=== PATIENT | female | born 1975 | race Caucasian/White ===

== ENCOUNTER 2022-09-27 07:38 | Emergency (ER) | payer MEDICAID, SELFPAY ==
[2022-09-27] VITALS (13 sets, daily range): BP systolic 102–156; BP diastolic 64–88; PULSE 63–83; RESP 12–22; O2SAT 97–100; BMI 28.8
--- NOTE | 2022-09-27 07:51 | ECG_ITS ---
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
--- NOTE | 2022-09-27 07:52 | XR_ITS ---
[address] [address] Patient Name: KATI LANGLEY MRN: [id number] date: 1975 Sex: F Assigned Patient Location: ER Current Patient Location: ER Accession/Order Number: [id number] Exam Date: 09/27/2022 08:05 Report Date: 09/27/2022 08:25 At the request of: CHANDLER CAPUTO Procedure: XR chest 2V XR chest 2V CLINICAL HISTORY: Syncope, possible vasovagal. COMPARISON: None Available. TECHNIQUE: Single AP portable upright view of the chest. FINDINGS: The lungs are clear. No pleural effusion or pneumothorax. Cardiomediastinal silhouette size is normal. Thoracic spondylosis without acute bony process. IMPRESSION: No acute cardiopulmonary process. Electronically authenticated by: LOUISE SINGLETARY Date: 09/27/2022 08:25
--- NOTE | 2022-09-27 07:53 | ED.SYNCOPE1 ---
HPI - Syncope General Chief Complaint: Syncope Stated Complaint: PASSING OUT Time Seen by Provider: 09/27/22 07:46 Source: patient Mode of arrival: walk-in History of Present Illness HPI narrative: patient presents with a syncopal episode today. Her and her slept on the couch last night. He felt fine all evening long. She had to void this morning and when she got up quickly to use the restroom and sat on the commode she started feeling woozy and lightheaded. She remembers hearing a thump but was on the floor for unspecified amount of time. She did not injure herself and has no pain or discomfort at this time. She woke up and felt little lightheaded at that time. She took her blood pressure shortly thereafter with a home monitor and was on the low side. She is not treating herself for hypertension and has no previous episodes syncope before. 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 She did not have any palpitations. She denies any use of drugs. She did have several alcoholic beverages last night. She denied any shortness of breath. She's not had swelling of her legs. She is not on any estrogen products. No history of clotting diseases or deep vein thrombosis/PE. Her brother had a nonspecific clotting disorder. MD complaint: Reports loss of consciousness and felt faint; Denies seizure Description of event: Denies post-event confusion or incontinence Related Data Allergies Allergy/AdvReac Type Severity Reaction Status Date / Time ciprofloxacin [From Cipro] Allergy Severe Verified 09/27/22 07:49 morphine Allergy Severe Verified 09/27/22 07:49 Penicillins Allergy Severe Verified 09/27/22 07:49 meperidine [From Demerol] AdvReac Severe Verified 09/27/22 07:49 Exam Narrative Exam Narrative: awake alert good health. She wanted to know if I thought that she may have had a vasovagal reaction. 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 She feels fine at this time with no symptoms at all. He does have a local family doctor but she has not seen him recently. Constitutional Vital Signs - 24 hr 09/27/22 07:42 09/27/22 07:46 09/27/22 07:51 Pulse Rate 75 Pulse Rate [Monitor] 79 Respiratory Rate 18 19 Blood Pressure 102/64 Blood Pressure [Left Arm] 156/88 H Pulse Oximetry 100 Oxygen Delivery Method Room Air 09/27/22 09:04 09/27/22 09:54 09/27/22 07:51 Pulse Rate 65 Pulse Rate [Monitor] Respiratory Rate 16 Blood Pressure 104/68 104/80 H Blood Pressure [Left Arm] Pulse Oximetry 99 Oxygen Delivery Method 09/27/22 07:46 09/27/22 08:16 09/27/22 08:20 Pulse Rate 71 83 68 Pulse Rate [Monitor] Respiratory Rate 22 19 17 Blood Pressure 156/88 H Blood Pressure [Left Arm] Pulse Oximetry 100 99 99 Oxygen Delivery Method 09/27/22 08:25 09/27/22 08:25 Pulse Rate 69 63 Pulse Rate [Monitor] Respiratory Rate 15 16 Blood Pressure Blood Pressure [Left Arm] Pulse Oximetry 99 Oxygen Delivery Method Common normals: no apparent distress, average body habitus and oriented x3 Exam limitations: no altered mental status Neck & C-Spine Common normals: full ROM, supple and no meningeal signs Carotids: normal carotid upstroke Respiratory Common normals: normal respiratory effort and clear to auscultation bilaterally Cardio Common normals: no JVD, regular rate, regular rhythm, no clicks and no murmurs Extremity Common normals: no calf tenderness and no pedal edema Course Vital Signs Vital signs: Vital Signs Pulse Rate 79 09/27/22 07:42 Respiratory Rate 18 09/27/22 07:42 Blood Pressure 156/88 H 09/27/22 07:42 Pulse Oximetry 100 09/27/22 07:42 Oxygen Delivery Method Room Air 09/27/22 07:42 Pulse Rate 83 09/27/22 13:30 Respiratory Rate 16 09/27/22 13:30 Blood Pressure 122/78 H 09/27/22 12:45 Pulse Oximetry 99 09/27/22 13:30 Oxygen Delivery Method Room Air 09/27/22 07:42 MDM - Syncope MDM Narrative Medical decision making narrative: this patient presents with low cardiovascular risk profile with no current hypertension diabetes or cholesterol problems. Her examination was benign. She definitely had a syncopal episode that is new event for her. Her EKGs do not show any ischemia injury or infarct. Her initial troponin came back substantially elevated at nearly 400. She had already taken 325 mg of aspirin at home. A repeat troponin was done two hours after the 1st and is even more elevated at nearly 1400. 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 She was stable and totally asymptomatic throughout this time. Here in the Emergency Room. Lab Data Labs: Lab Results 09/27/22 09/27/22 Range/Units 07:48 10:14 WBC 8.4 (4.0-11.0) 10^3/uL RBC 4.92 (4.20-5.40) 10^6/uL Hgb 14.1 (12.0-16.0) g/dL Hct 43.2 (36.0-48.0) % MCV 87.8 (81.0-99.0) fL MCH 28.7 (26.7-34.0) pg MCHC 32.6 (29.9-35.2) g/dL RDW 13.2 (11.0-15.0) % Plt Count 347 (150-450) 10^3/uL MPV 9.3 L (9.5-13.5) fL Neut % (Auto) 59.5 (43.0-75.0) % Lymph % (Auto) 27.1 (20.5-60.0) % [place] % (Auto) 6.4 (1.7-12.0) % Eos % (Auto) 6.0 (0.9-7.0) % Baso % (Auto) 0.6 (0.2-2.0) % Neut # (Auto) 5.0 (1.4-6.5) 10^3/uL Lymph # (Auto) 2.3 (1.2-3.8) 10^3/uL [place] # (Auto) 0.5 (0.3-0.8) 10^3/uL Eos # (Auto) 0.5 (0.0-0.7) 10^3/uL Baso # (Auto) 0.1 (0.0-0.1) 10^3/uL Abs Immat Gran (auto) 0.03 (0.00-0.03) 10^3/uL Imm/Tot Granulo (auto) 0.4 (0.0-0.5) % D-Dimer 0.38 (<=0.59) mg/L FEU Sodium 139 (136-145) mmol/L Potassium 3.8 (3.5-5.1) mmol/L Chloride 103 (98-107) mmol/L Carbon Dioxide 28.7 (21.0-32.0) mmol/L Anion Gap 11.1 BUN 8.0 (7.0-18.0) mg/dL Creatinine 0.75 (0.55-1.02) mg/dL Est GFR ( Amer) >60 (>=60) Est GFR (Non-Af Amer) >60 (>=60) BUN/Creatinine Ratio 10.7 Glucose 107 H (74-106) mg/dL Calcium 7.9 L (8.5-10.1) mg/dL Total Bilirubin 0.3 (0.2-1.0) mg/dL AST 15 (15-37) U/L ALT 17 (14-59) U/L Alkaline Phosphatase 61 (46-116) U/L Troponin I High Sens 424.9 H* 1444.0 H* (4.0-51.3) pg/mL Total Protein 7.0 (6.4-8.2) g/dL Albumin 3.3 L (3.4-5.0) g/dL Globulin 3.7 g/dL Albumin/Globulin Ratio 0.9 ECG Data Attestation: I personally reviewed and interpreted this ECG as follows: (EKG shows sinus rhythm rate sixty, no ectopy, no ST segment elevation. QTC four thirty-two. A 2nd EKG was done and showed essentially identical findings.) Discharge Plan Discharge Chief Complaint: Syncope Clinical Impression: Vasovagal syncope, Non-ST elevated myocardial infarction (non-STEMI) Patient Disposition: [facility] Time of Disposition Decision: 11:03 Discharge Location: [facility] Condition: Good Mode of Transportation: EMS Discharge Date/Time: 09/27/22 13:32
[2022-09-27] MEDS: 0.9 % SODIUM CHLORIDE 1,000 ML 999 ML IV (08:03)
[2022-09-27 08:04] LABS: Basophils Absolute Auto 0.1 10^3/uL (0.0-0.1); Basophils Percent Auto 0.6 % (0.2-2.0); Eosinophils Absolute Auto 0.5 10^3/uL (0.0-0.7); Hematocrit 43.2 % (36.0-48.0); Hemoglobin 14.1 g/dL (12.0-16.0); Immature Granulocytes Abs Auto 0.03 10^3/uL (0.00-0.03); Immature Granulocytes Pct Auto 0.4 % (0.0-0.5); Lymphocytes Absolute Auto 2.3 10^3/uL (1.2-3.8); Lymphocytes Percent Auto 27.1 % (20.5-60.0); Mean Corpuscular HGB Conc 32.6 g/dL (29.9-35.2); Mean Corpuscular Hemoglobin 28.7 pg (26.7-34.0); Mean Corpuscular Volume 87.8 fL (81.0-99.0); Mean Platelet Volume 9.3 fL (9.5-13.5); Monocytes Absolute Auto 0.5 10^3/uL (0.3-0.8); Monocytes Percent Auto 6.4 % (1.7-12.0); Neutrophils Percent Auto 59.5 % (43.0-75.0); Platelet Count 347 10^3/uL (150-450); Red Blood Count 4.92 10^6/uL (4.20-5.40); Red Cell Distribution Width 13.2 % (11.0-15.0); White Blood Count 8.4 10^3/uL (4.0-11.0)
[2022-09-27 08:16] LABS: Alanine Aminotransferase 17 U/L (14-59); Albumin Globulin Ratio 0.9; Albumin Level 3.3 g/dL (3.4-5.0); Alkaline Phosphatase 61 U/L (46-116); Anion Gap 11.1; Aspartate Amino Transferase 15 U/L (15-37); BUN Creatinine Ratio 10.7; Bilirubin Total 0.3 mg/dL (0.2-1.0); Calcium 7.9 mg/dL (8.5-10.1); Carbon Dioxide 28.7 mmol/L (21.0-32.0); Chloride 103 mmol/L (98-107); Estimated GFR (African America >60 (>=60); Estimated GFR (Non-African Ame >60 (>=60); Globulin 3.7 g/dL; Glucose 107 mg/dL (74-106); Potassium 3.8 mmol/L (3.5-5.1); Sodium 139 mmol/L (136-145)
[2022-09-27 08:17] LABS: D Dimer 0.38 mg/L FEU (<=0.59)
[2022-09-27 08:19] LABS: Troponin I High Sensitivity 424.9 pg/mL (4.0-51.3)
--- NOTE | 2022-09-27 08:30 | ECG_ITS ---
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
== END 2022-09-27 13:32 | disposition short-term general hospital (02) ==
PROVIDERS: Emergency Provider Emergency Medicine Emergency Medical Services; PCP Family Medicine
DX: I21.4 Non-ST elevation (NSTEMI) myocardial infarction (principal); R55 Syncope and collapse
CPT/HCPCS: 36415; 71046; 80053; 84484; 85025; 85378; 93005; 96360; 96361; 99285

== ENCOUNTER 2022-10-08 12:53 | Outpatient (OUT) | payer MEDICAID, SELFPAY ==
[2022-10-09 13:09] LABS: ANA Direct Negative (Negative)
[2022-10-21 12:12] LABS: APTT 26.7 sec (.); Prothrombin Time 10.4 sec (.); Thrombin Time 15.8 sec (.)
== END 2022-10-08 12:54 | disposition home or self-care (01) ==
LOC: LAB 12:55
PROVIDERS: PCP Family Medicine; Visit Provider Internal Medicine Cardiovascular Disease
DX: I21.4 Non-ST elevation (NSTEMI) myocardial infarction (principal); I25.10 Atherosclerotic heart disease of native coronary artery without angina pectoris
CPT/HCPCS: 36415; 81241; 85597; 85598; 85610; 85613; 85670; 85730; 85732; 86038; 86146; 86147

== ENCOUNTER 2022-11-02 14:20 | Outpatient (OUT) | payer OTHER, SELFPAY ==
[2022-11-02 14:35] LABS: Basophils Absolute Auto 0.1 10^3/uL (0.0-0.1); Basophils Percent Auto 0.6 % (0.2-2.0); Eosinophils Absolute Auto 0.2 10^3/uL (0.0-0.7); Eosinophils Percent Auto 2.4 % (0.9-7.0); Hematocrit 25.5 % (36.0-48.0); Hemoglobin 8.4 g/dL (12.0-16.0); Immature Granulocytes Abs Auto 0.03 10^3/uL (0.00-0.03); Immature Granulocytes Pct Auto 0.3 % (0.0-0.5); Lymphocytes Absolute Auto 2.3 10^3/uL (1.2-3.8); Lymphocytes Percent Auto 22.5 % (20.5-60.0); Mean Corpuscular HGB Conc 32.9 g/dL (29.9-35.2); Mean Corpuscular Hemoglobin 28.4 pg (26.7-34.0); Mean Corpuscular Volume 86.1 fL (81.0-99.0); Mean Platelet Volume 9.2 fL (9.5-13.5); Monocytes Absolute Auto 0.6 10^3/uL (0.3-0.8); Monocytes Percent Auto 5.5 % (1.7-12.0); Neutrophils Percent Auto 68.7 % (43.0-75.0); Platelet Count 370 10^3/uL (150-450); Red Blood Count 2.96 10^6/uL (4.20-5.40); Red Cell Distribution Width 13.5 % (11.0-15.0); White Blood Count 10.2 10^3/uL (4.0-11.0)
== END 2022-11-02 14:21 | disposition home or self-care (01) ==
LOC: LAB 14:23
PROVIDERS: PCP Family Medicine; Visit Provider Obstetrics & Gynecology
DX: N93.9 Abnormal uterine and vaginal bleeding, unspecified (principal)
CPT/HCPCS: 36415; 85025

== ENCOUNTER 2022-11-30 13:56 | Outpatient (OUT) | payer OTHER, SELFPAY ==
[2022-11-30 14:27] LABS: Basophils Absolute Auto 0.1 10^3/uL (0.0-0.1); Basophils Percent Auto 0.7 % (0.2-2.0); Eosinophils Absolute Auto 0.2 10^3/uL (0.0-0.7); Hematocrit 32.6 % (36.0-48.0); Hemoglobin 10.1 g/dL (12.0-16.0); Immature Granulocytes Abs Auto 0.02 10^3/uL (0.00-0.03); Immature Granulocytes Pct Auto 0.3 % (0.0-0.5); Lymphocytes Absolute Auto 2.1 10^3/uL (1.2-3.8); Lymphocytes Percent Auto 31.8 % (20.5-60.0); Mean Corpuscular Hemoglobin 26.6 pg (26.7-34.0); Mean Platelet Volume 8.7 fL (9.5-13.5); Monocytes Absolute Auto 0.4 10^3/uL (0.3-0.8); Neutrophils Absolute Auto 3.9 10^3/uL (1.4-6.5); Neutrophils Percent Auto 58.2 % (43.0-75.0); Platelet Count 429 10^3/uL (150-450); Red Blood Count 3.79 10^6/uL (4.20-5.40); Red Cell Distribution Width 13.4 % (11.0-15.0); White Blood Count 6.7 10^3/uL (4.0-11.0)
[2022-11-30 14:39] LABS: Lactate Dehydrogenase 195 U/L (81-234)
[2022-12-01 04:10] LABS: AFP, Serum, Tumor Marker 1.9 ng/mL (0.0-6.4); HCG Tumor Marker 1 mIU/mL (.)
[2022-12-01 05:07] LABS: CEA 1.6 ng/mL (0.0-4.7)
== END 2022-11-30 13:57 | disposition home or self-care (01) ==
LOC: LAB 13:56
PROVIDERS: PCP Family Medicine; Visit Provider Obstetrics & Gynecology
DX: D25.9 Leiomyoma of uterus, unspecified (principal); N93.9 Abnormal uterine and vaginal bleeding, unspecified
CPT/HCPCS: 36415; 82105; 82378; 83615; 84702; 85025; 86304

== ENCOUNTER 2023-03-18 20:11 | Emergency (ER) | payer OTHER, SELFPAY ==
[2023-03-18] VITALS (12 sets, daily range): BP systolic 150–162; BP diastolic 98–100; PULSE 85–103; RESP 7–28; TEMP 36.9; O2SAT 97–100; BMI 31.1
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
--- NOTE | 2023-03-18 20:39 | ECG_ITS ---
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
--- NOTE | 2023-03-18 21:12 | CT_ITS ---
The [address] [address] Patient Name: KATI CORTEZ MRN: [id number] date: 1975 Sex: F Assigned Patient Location: ER Current Patient Location: ER Accession/Order Number: [id number] Exam Date: 03/18/2023 21:45 Report Date: 03/18/2023 22:34 At the request of: JOY MAYNARD Procedure: CT angio abdomen pelvis EXAM: CT angiogram of the chest, abdomen and pelvis using 100 mL of IV iodinated contrast. 3D images were generated on an independent workstation for better evaluation of the vasculature. Dose reduction technique used: Automated exposure control and/or adjustment of the mA and/or kV according to patient size and/or use of iterative reconstruction technique. REASON FOR EXAM: chest pain COMPARISON: None FINDINGS: CHEST: No aortic dissection, aneurysm, penetrating atheromatous ulcer or intramural hematoma. No pulmonary embolism. No pneumothorax. No pleural effusion. No acute airspace opacities. No acute fractures. No concerning pulmonary nodules. No lymphadenopathy in the chest. Coronary atherosclerotic calcifications. ABDOMEN/PELVIS: No aortic dissection, aneurysm, penetrating atheromatous ulcer or intramural hematoma. Celiac, superior mesenteric, bilateral renal, inferior mesenteric, bilateral common iliac, bilateral external iliac, bilateral common femoral arteries are patent without aneurysm, dissection or significant stenosis. Grade 2-3 anterolisthesis of L5 on S1. Bilateral L5 spondylolysis. Colonic diverticulosis. Normal appendix. No free intraperitoneal air. No free fluid in the abdomen or pelvis. No dilated or thickened loops of small bowel or colon. No hydronephrosis or obstructing renal or ureteral calculi. Liver, pancreas, spleen, bilateral kidneys, and bilateral adrenal glands are otherwise unremarkable. Remainder unremarkable. CT/CT angio abdomen pelvis IMPRESSION: 1. No acute aortic abnormalities. 2. No acute abnormalities in the chest, abdomen or pelvis. 3. Coronary atherosclerosis. 4. Grade 2-3 anterolisthesis of L5 on S1. Electronically authenticated by: DEBORAH GIBBS Date: 03/18/2023 22:34
--- NOTE | 2023-03-18 21:12 | CT_ITS ---
The [address] [address] Patient Name: KATI CORTEZ MRN: [id number] date: 1975 Sex: F Assigned Patient Location: ER Current Patient Location: ER Accession/Order Number: [id number] Exam Date: 03/18/2023 21:45 Report Date: 03/18/2023 22:34 At the request of: JOY MAYNARD Procedure: CT angio chest EXAM: CT angiogram of the chest, abdomen and pelvis using 100 mL of IV iodinated contrast. 3D images were generated on an independent workstation for better evaluation of the vasculature. Dose reduction technique used: Automated exposure control and/or adjustment of the mA and/or kV according to patient size and/or use of iterative reconstruction technique. REASON FOR EXAM: chest pain COMPARISON: None FINDINGS: CHEST: No aortic dissection, aneurysm, penetrating atheromatous ulcer or intramural hematoma. No pulmonary embolism. No pneumothorax. No pleural effusion. No acute airspace opacities. No acute fractures. No concerning pulmonary nodules. No lymphadenopathy in the chest. Coronary atherosclerotic calcifications. ABDOMEN/PELVIS: No aortic dissection, aneurysm, penetrating atheromatous ulcer or intramural hematoma. Celiac, superior mesenteric, bilateral renal, inferior mesenteric, bilateral common iliac, bilateral external iliac, bilateral common femoral arteries are patent without aneurysm, dissection or significant stenosis. Grade 2-3 anterolisthesis of L5 on S1. Bilateral L5 spondylolysis. Colonic diverticulosis. Normal appendix. No free intraperitoneal air. No free fluid in the abdomen or pelvis. No dilated or thickened loops of small bowel or colon. No hydronephrosis or obstructing renal or ureteral calculi. Liver, pancreas, spleen, bilateral kidneys, and bilateral adrenal glands are otherwise unremarkable. Remainder unremarkable. CT/CT angio chest IMPRESSION: 1. No acute aortic abnormalities. 2. No acute abnormalities in the chest, abdomen or pelvis. 3. Coronary atherosclerosis. 4. Grade 2-3 anterolisthesis of L5 on S1. Electronically authenticated by: DEBORAH GIBBS Date: 03/18/2023 22:34
[2023-03-18 21:21] LABS: Basophils Absolute Auto 0.1 10^3/uL (0.0-0.1); Basophils Percent Auto 0.6 % (0.2-2.0); Eosinophils Absolute Auto 0.3 10^3/uL (0.0-0.7); Eosinophils Percent Auto 3.5 % (0.9-7.0); Hematocrit 34.9 % (36.0-48.0); Immature Granulocytes Abs Auto 0.03 10^3/uL (0.00-0.03); Immature Granulocytes Pct Auto 0.3 % (0.0-0.5); Lymphocytes Absolute Auto 2.6 10^3/uL (1.2-3.8); Lymphocytes Percent Auto 29.3 % (20.5-60.0); Mean Corpuscular HGB Conc 28.7 g/dL (29.9-35.2); Mean Corpuscular Hemoglobin 21.6 pg (26.7-34.0); Mean Corpuscular Volume 75.4 fL (81.0-99.0); Mean Platelet Volume 9.1 fL (9.5-13.5); Monocytes Absolute Auto 0.5 10^3/uL (0.3-0.8); Neutrophils Absolute Auto 5.4 10^3/uL (1.4-6.5); Neutrophils Percent Auto 60.3 % (43.0-75.0); Platelet Count 443 10^3/uL (150-450); Red Blood Count 4.63 10^6/uL (4.20-5.40); Red Cell Distribution Width 18.6 % (11.0-15.0)
[2023-03-18] MEDS: ONDANSETRON PF 4 MG/2 ML VIAL IV (21:24)
[2023-03-18] MEDS: 0.9 % SODIUM CHLORIDE 1,000 ML 999 ML IV (21:24)
[2023-03-18] MEDS: HYDROMORPHONE HCL 1 MG/ML CARTRIDGE IV (21:27)
[2023-03-18] MEDS: ORPHENADRINE 60 MG/ 2 ML VIAL IV (21:27)
[2023-03-18 21:40] LABS: Prothrombin Time 9.8 sec (9.0-11.6)
[2023-03-18 21:43] LABS: Alanine Aminotransferase 24 U/L (14-59); Albumin Globulin Ratio 1.1; Albumin Level 3.7 g/dL (3.4-5.0); Alkaline Phosphatase 53 U/L (46-116); Anion Gap 13.4; Aspartate Amino Transferase 14 U/L (15-37); BUN Creatinine Ratio 21.4; Bilirubin Total 0.5 mg/dL (0.2-1.0); Calcium 8.4 mg/dL (8.5-10.1); Carbon Dioxide 27.4 mmol/L (21.0-32.0); Chloride 102 mmol/L (98-107); Estimated GFR (African America >60 (>=60); Estimated GFR (Non-African Ame >60 (>=60); Globulin 3.5 g/dL; Glucose 104 mg/dL (74-106); Potassium 3.8 mmol/L (3.5-5.1); Sodium 139 mmol/L (136-145); Total Protein 7.2 g/dL (6.4-8.2)
[2023-03-18 21:44] LABS: INR <0.93
[2023-03-18 21:46] LABS: Troponin I High Sensitivity 15.6 pg/mL (4.0-51.3)
[2023-03-18 22:46] LABS: Amphetamine Screen Urine NEGATIVE (NEGATIVE); Barbiturates Screen Urine NEGATIVE (NEGATIVE); Benzodiazepines Screen Urine NEGATIVE (NEGATIVE); Buprenorphine Screen Urine NEGATIVE (NEGATIVE); Cannabinoid Screen Urine NEGATIVE (NEGATIVE); Cocaine Screen Urine NEGATIVE (NEGATIVE); Methadone Screen Urine NEGATIVE (NEGATIVE); Methamphetamines Screen Urine NEGATIVE (NEGATIVE); Opiate Screen Urine POSITIVE (NEGATIVE); Oxycodone Screen Urine NEGATIVE (NEGATIVE); Phencyclidine Screen Urine NEGATIVE (NEGATIVE); Tricyclic Antidepressant Urine NEGATIVE (NEGATIVE)
[2023-03-19] MEDS: DIAZEPAM 2 MG TABLET PO (00:07)
== END 2023-03-19 00:29 | disposition home or self-care (01) ==
PROVIDERS: Physician Assistant; Emergency Provider Emergency Medicine; PCP Family Medicine
DX: R10.9 Unspecified abdominal pain (principal); M54.9 Dorsalgia, unspecified; S16.1XXA Strain of muscle, fascia and tendon at neck level, initial encounter; Y04.8XXA Assault by other bodily force, initial encounter; Z95.5 Presence of coronary angioplasty implant and graft; Z79.899 Other long term (current) drug therapy
CPT/HCPCS: 36415; 71275; 72125; 74174; 80053; 80307; 84484; 85025; 85610; 93005; 96374; 96375; 99285; J1170; Q9967

== ENCOUNTER 2023-03-20 20:21 | Emergency (ER) | payer OTHER, SELFPAY ==
[2023-03-20 20:28] VITALS: BP 129/80; PULSE 92; RESP 18; TEMP 36.8; O2SAT 99; BMI 33.7
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
--- NOTE | 2023-03-20 23:24 | XR_ITS ---
The [address] [address] Patient Name: KATI CORTEZ MRN: [id number] date: 1975 Sex: F Assigned Patient Location: ER Current Patient Location: ER Accession/Order Number: [id number] Exam Date: 03/20/2023 23:38 Report Date: 03/21/2023 00:00 At the request of: PK MCLEAN Procedure: XR chest 2V EXAM: XR chest 2V HISTORY: hemoptysis COMPARISON: Chest x-ray 09/27/2022 TECHNIQUE: PA and lateral chest FINDINGS: No pneumothorax, pleural effusion or consolidation. Normal heart size. No acute osseous abnormality. XR/XR chest 2V IMPRESSION: No acute cardiopulmonary process. Electronically authenticated by: ALFREDO ALRFED Date: 03/21/2023 00:00
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
[2023-03-20 23:57] LABS: Basophils Percent Auto 0.4 % (0.2-2.0); Eosinophils Absolute Auto 0.4 10^3/uL (0.0-0.7); Eosinophils Percent Auto 3.4 % (0.9-7.0); Hematocrit 33.6 % (36.0-48.0); Hemoglobin 9.7 g/dL (12.0-16.0); Immature Granulocytes Abs Auto 0.04 10^3/uL (0.00-0.03); Immature Granulocytes Pct Auto 0.4 % (0.0-0.5); Lymphocytes Absolute Auto 2.3 10^3/uL (1.2-3.8); Lymphocytes Percent Auto 22.7 % (20.5-60.0); Mean Corpuscular HGB Conc 28.9 g/dL (29.9-35.2); Mean Corpuscular Hemoglobin 22.4 pg (26.7-34.0); Mean Corpuscular Volume 77.4 fL (81.0-99.0); Mean Platelet Volume 9.2 fL (9.5-13.5); Monocytes Absolute Auto 0.7 10^3/uL (0.3-0.8); Monocytes Percent Auto 6.3 % (1.7-12.0); Neutrophils Absolute Auto 6.8 10^3/uL (1.4-6.5); Neutrophils Percent Auto 66.8 % (43.0-75.0); Platelet Count 396 10^3/uL (150-450); Red Blood Count 4.34 10^6/uL (4.20-5.40); Red Cell Distribution Width 18.6 % (11.0-15.0); White Blood Count 10.2 10^3/uL (4.0-11.0)
[2023-03-21 00:17] LABS: Alanine Aminotransferase 27 U/L (14-59); Albumin Level 3.3 g/dL (3.4-5.0); Alkaline Phosphatase 47 U/L (46-116); Anion Gap 10.2; Aspartate Amino Transferase 14 U/L (15-37); BUN Creatinine Ratio 18.7; Bilirubin Total 0.2 mg/dL (0.2-1.0); Calcium 8.5 mg/dL (8.5-10.1); Carbon Dioxide 28.8 mmol/L (21.0-32.0); Chloride 104 mmol/L (98-107); Estimated GFR (African America >60 (>=60); Estimated GFR (Non-African Ame >60 (>=60); Globulin 3.4 g/dL; Glucose 94 mg/dL (74-106); Sodium 139 mmol/L (136-145); Total Protein 6.7 g/dL (6.4-8.2); Troponin I High Sensitivity 12.9 pg/mL (4.0-51.3)
[2023-03-21] MEDS: 0.9 % SODIUM CHLORIDE 1,000 ML 999 ML IV (00:21)
[2023-03-21] MEDS: CYCLOBENZAPRINE HCL 10 MG TABLET 20 MG PO (01:14)
== END 2023-03-21 01:24 | disposition home or self-care (01) ==
PROVIDERS: Emergency Provider Internal Medicine; PCP Family Medicine
DX: M79.18 Myalgia, other site (principal); I25.2 Old myocardial infarction; Z79.02 Long term (current) use of antithrombotics/antiplatelets; F17.210 Nicotine dependence, cigarettes, uncomplicated
CPT/HCPCS: 36415; 71046; 80053; 83605; 84484; 85025; 99285

== ENCOUNTER 2023-03-26 15:10 | Outpatient (OUT) | payer OTHER, SELFPAY ==
[2023-03-26 15:52] LABS: Basophils Absolute Auto 0.1 10^3/uL (0.0-0.1); Basophils Percent Auto 0.9 % (0.2-2.0); Eosinophils Absolute Auto 0.3 10^3/uL (0.0-0.7); Eosinophils Percent Auto 4.1 % (0.9-7.0); Hematocrit 37.9 % (36.0-48.0); Immature Granulocytes Abs Auto 0.02 10^3/uL (0.00-0.03); Immature Granulocytes Pct Auto 0.2 % (0.0-0.5); Lymphocytes Absolute Auto 2.2 10^3/uL (1.2-3.8); Lymphocytes Percent Auto 26.7 % (20.5-60.0); Mean Platelet Volume 8.8 fL (9.5-13.5); Monocytes Absolute Auto 0.5 10^3/uL (0.3-0.8); Monocytes Percent Auto 6.5 % (1.7-12.0); Neutrophils Percent Auto 61.6 % (43.0-75.0); Platelet Count 492 10^3/uL (150-450); Red Blood Count 4.99 10^6/uL (4.20-5.40); Red Cell Distribution Width 19.2 % (11.0-15.0); White Blood Count 8.1 10^3/uL (4.0-11.0)
[2023-03-26 16:17] LABS: Alanine Aminotransferase 26 U/L (14-59); Alkaline Phosphatase 57 U/L (46-116); Aspartate Amino Transferase 15 U/L (15-37); BUN Creatinine Ratio 17.6; Bilirubin Total 0.4 mg/dL (0.2-1.0); Calcium 9.1 mg/dL (8.5-10.1); Carbon Dioxide 30.4 mmol/L (21.0-32.0); Chloride 98 mmol/L (98-107); Estimated GFR (African America >60 (>=60); Estimated GFR (Non-African Ame >60 (>=60); Globulin 3.9 g/dL; Glucose 96 mg/dL (74-106); Potassium 3.4 mmol/L (3.5-5.1); Sodium 135 mmol/L (136-145); Thyroid Stimulating Hormone 1.008 uIU/mL (0.358-3.740); Total Protein 7.9 g/dL (6.4-8.2)
[2023-03-26 16:19] LABS: Free T4 1.35 ng/dL (0.76-1.46)
[2023-03-29 15:08] LABS: Protein C-Functional 116 % (73-180); Protein S-Functional 83 % (63-140)
== END 2023-03-26 15:11 | disposition home or self-care (01) ==
PROVIDERS: PCP Family Medicine; Visit Provider Family Medicine
DX: I21.4 Non-ST elevation (NSTEMI) myocardial infarction (principal)
CPT/HCPCS: 36415; 80053; 84439; 84443; 85025; 85303; 85306

== ENCOUNTER 2023-04-14 11:23 | Outpatient (OUT) | payer OTHER, SELFPAY ==
--- OUTSIDE RECORDS SUMMARY | 2023-04-14 11:29 | XMS_ITS | CCD ---
Author Name Unknown Address [address] [place] [address] Organization [facility] Care Team Providers Care Construction Engineer Name Role Phone REBECCA ABREU Attending Unavailable REBECCA ABREU Admitting Unavailable Griffin Paredes Unavailable Unavailable Unavailable Johnnie, Dr. Humberto Malloy Attending Unava ilable Johnnie, Jed Diaz Attending Unavailabl e Johnnie, Dr. Humberto Malloy Attending Unava tariq Paredes, Dr. Griffin Garrett Primary Care Unavail able Lena, Dr. Griffin Garrett Primary Care Unavail able Magdy RENEE, Dr. Humberto Mireles Referring Unavailable Dr. Humberto Blair Attending Unava ilGriffin Og Primary Care Unavailable Bullimanne-marie, Ilene E Admitting Unavailable Bullimore, Ilene Galina Attending Unavailable Griffin Paredes Primary Care Unavailable Semaskiene, Ariadna Admitting Unavailable Preston Nair Attending Unavailable Laurita Cardona Consulting Unavailable Davin Blair Consulting Unavailable Della Smith Consulting Unavailable Humberto Curran Consulting Unavail able Brooks Farias Consulting Unavailable Alvaro eVlazquez Consulting Unavailab Josefa Dickson Consulting Unavailable Pooja Zuniga Consulting Unavailable Jose F Magana Consulting Unavailab Marisela Yang Consulting Unavailable Diane Javier Consulting Unavailable Latricia Shine Consulting Unavailable Allergies Allergy Classification Reported Allergen(s) Allergy Type Date of Onset Reaction(s) Facility (3 sources) Ciprofloxacin; Translations: [ciprofloxacin] Drug Allergy [facility] 250 DO Work Phone: (3 sources) Meperidine; Translations: [Demerol TABS] Drug Allergy [facility] 250 DO Work Phone: (3 sources) Penicillins; Translations: [Penicillins] Allergy to drug (finding) -[facility] 250 DO Work Phone: (1 source) Ciprofloxacin Drug Allergy 10-29-2022 [facility] (1 source) Meperidine Drug Allergy 10-29-2022 [facility] (1 source) Morphine Drug Allergy 10-29-2022 [facility] (1 source) Penicillins Drug allergy (disorder) 10-29-2022 [facility] Medications Completed/Discontinued Medications Medication Drug Class(es) Dates Sig (Normalized) Sig (Original) aspirin 81 mg delayed release oral tablet (3 sources) Platelet Aggregation Inhibitor, Nonsteroidal Anti-inflammatory Drug take 1 tablet by mouth once daily Aspirin EC Low Dose 81 MG Oral Tablet Delayed Release TAKE 1 TABLET DAILY DIRECTED. Quantity: 90 Refills: 3 Ordered: 06-Oct-2022 DO Active atorvastatin 80 mg oral tablet (3 sources) HMG-CoA Reductase Inhibitor Start: 10-21-2022 take 1 tablet by mouth at bedtime Atorvastatin Calcium 80 MG Oral Tablet TAKE 1 TABLET AT BEDTIME Quantity: 90 Refills: 3 Ordered: 21-Oct-2022 Humberto Blair DO Start : 21-Oct-2022 Active Name on file SHAMEKA CORTEZ take 1 tablet by mouth at bedtim e Atorvastatin Calcium 80 MG Oral Tablet TAKE 1 TABLET AT BEDTIME. Quantity: 90 Refills: 3 Ordered: 06-Oct-2022 DO Active clopidogrel 75 mg oral tablet (1 source) P2Y12 Platelet Inhibitor Start: 11-03-2022 End: 11-30-2022 Clopidogrel Bisulfate 75 MG Oral Tablet 4 TABLETS X1 DOSE THEN ONE TABLET DAILY THERAFTER. Quantity: 94 Refills: 3 Ordered: 03-Nov-2022 Humberto Blair DO Start : 03-Nov-2022 End : 30-Nov-2022 Complete BRILINTA DISVCONTINUED lisinopril 2.5 mg oral tablet (3 sources) Angiotensin Converting Enzyme Inhibitor Start: 10-21-2022 take 1 tablet by mouth once daily Lisinopril 2.5 MG Oral Tablet Take 1 tablet daily Quantity: 90 Refills: 3 Ordered: 21-Oct-2022 Humberto Blair DO Start : 21-Oct-2022 Active take 1 tablet by mouth once delores y Lisinopril 2.5 MG Oral Tablet TAKE 1 TABLET DAILY. Quantity: 90 Refills: 3 Ordered: 06-Oct-2022 DO Active metoprolol tartrate 25 mg oral tablet (3 sources) beta-Adrenergic Jason Start: 10-21-2022 take 1 tablet by mouth twice daily Metoprolol Tartrate 25 MG Oral Tablet Take 1 tablet twice a day Quantity: 180 Refills: 3 Ordered: 21-Oct-2022 Johnnie MALAGON Humberto Start : 21-Oct-2022 Active take 1 tablet by mouth twice leana ly Metoprolol Tartrate 25 MG Oral Tablet TAKE 1 TABLET TWICE DAILY. Quantity: 180 Refills: 1 Ordered: 06-Oct-2022 DO Active nitroglycerin 0.4 mg sublingual tablet (3 sources) Nitrate Vasodilator Nitroglyceri n 0.4 [address] Tablet Sublingual PL[address] 1 TABLET UNDER THE TONGUE EVERY 5 MINUTES FOR UP TO 3 DOSES NEEDED FOR CHEST PAIN.CALL 911 IF PAIN PERSISTS. Quantity: 1 Refills: 0 Ordered: 06-Oct-2022 DO Active progesterone 200 mg oral capsule (1 source) Progesterone take 1 capsule by mouth once daily Progesterone 200 MG Oral Capsule one daily Quantity: 0 Refills: 0 Ordered: 30-Nov-2022 DO Active ticagrelor 90 mg oral tablet (3 sources) take 1 tablet by mouth twice daily Brilinta 90 MG Oral Tablet TAKE 1 TABLET TWICE DAILY. Quantity: 180 Refills: 3 Ordered: 30-Nov-2022 DO Active Problems Problem Classification Problem Date Documented Date Episodic/Chronic Acute myocardial infarction (3 sources) Myocardial infarction in recovery phase; Translations: [Subendocardial infarction, initial episode of care] Chronic Coronary atherosclerosis and other heart disease (9 sources) Coronary arteriosclerosis; Translations: [Coronary atherosclerosis of unspecified type of vessel, [place] or graft] Chronic Disorders of lipid metabolism (1 source) Hyperlipidemia; Translations: [Other and unspecified hyperlipidemia] Chronic Menstrual disorders (1 source) Excessive and frequent menstruation with regular cycle; Translations: [Excessive and frequent menstruation with regular cycle] Onset: 10-29-2022 Chronic Other aftercare (1 source) Drug therapy finding; Translations: [Long-term (current) use of other medications] Episodic Other hematologic conditions (1 source) Other specified abnormalities of plasma proteins; Translations: [Other specified abnormalities of plasma proteins] Onset: 09-27-2022 Episodic Other nutritional; endocrine; and metabolic disorders (3 sources) Overweight in adulthood with body mass index of 25 or more but less than 30; Translations: [Overweight] Episodic Screening and history of mental health and substance abuse codes (3 sources) Ex-smoker; Translations: [Personal history of tobacco use] Episodic Comment on above: stop September 27 2022; Syncope (1 source) Syncope and collapse; Translations: [Syncope and collapse] Onset: 09-27-2022 Episodic Results Test Name Value Interpretation Reference Range Facility Complete Blood Count Auto Di ffon 10-29-2022 Basophils (Bld) [#/Vol] 0.1 10*3/uL Normal 0.0-0.2 [facility] Comment on above: Result Comment: PERF ORMED BY: [place] [address] PATHOLOGIST LIFT DRIVER SAL VELASQUEZ M.D. Performed By: #### P T #### [address] Basophils/100 WBC (Bld) 0.6 % Normal . [facility] Comment on above: Performed By: #### P T #### [address] Eosinophils (Bld) [#/Vol] 0.2 10*3/uL Normal 0.0-0.45 [facility] Comment on above: Performed By: #### P T #### [address] Eosinophils/100 WBC (Bld) 2.6 % Normal . [facility] Comment on above: Performed By: #### P T #### [address] Erythrocyte distribution width (RBC) [Ratio] 14.3 % Normal 11.9-15.3 [facility] Comment on above: Performed By: #### P T #### [address] Hematocrit (Bld) [Volume fraction] 34.4 % Normal 34.0-46.4 [facility] Comment on above: Performed By: #### P T #### [facility] [address] Hemoglobin (Bld) [Mass/Vol] 11.5 g/dL Low 11.8-15.4 [facility] Comment on above: Performed By: #### P T #### [facility] [address] Lymphocytes (Bld) [#/Vol] 1.7 10*3/uL Normal 1.00-4.8 [facility] Comment on above: Performed By: #### P T #### [facility] [address] Lymphocytes/100 WBC (Bld) 19.5 % Normal . [facility] Comment on above: Performed By: #### P T #### [address] MCH (RBC) [Entitic mass] 28.7 pg Normal 24.7-34.3 [facility] Comment on above: Performed By: #### P T #### [address] MCV (RBC) [Entitic vol] 85.4 fL Normal 80-100 [facility] Comment on above: Performed By: #### P T #### [address] Mean Corpuscular HGB Conc 33.6 g/dL Normal 32.0-35.0 [facility] Comment on above: Performed By: #### P T #### [facility] [address] Monocytes (Bld) [#/Vol] 0.5 10*3/uL Normal 0.0-0.8 [facility] Comment on above: Performed By: #### P T #### [address] Monocytes/100 WBC (Bld) 16.57 % Normal 0.00-20.00 [facility] Comment on above: Performed By: #### P T #### [address] Monocytes/100 WBC (Bld) 6.1 % Normal . [facility] Comment on above: Performed By: #### P T #### [address] Neutrophils (Bld) [#/Vol] 6.1 10*3/uL Normal 1.8-7.7 [facility] Comment on above: Performed By: #### P T #### [address] Neutrophils/100 WBC (Bld) 71.2 % Normal . [facility] Comment on above: Performed By: #### P T #### [address] NRBC% 0.0 /100{WBC} Normal 0-0.5 [facility] Comment on above: Performed By: #### P T #### [address] Platelet mean volume (Bld) [Entitic vol] 7.6 fL Normal 6.3-10.7 [facility] Comment on above: Performed By: #### P T #### [address] Platelets (Bld) [#/Vol] 321 10*3/uL Normal 150-450 [facility] Comment on above: Performed By: #### P T #### [address] RBC (Bld) [#/Vol] 4.03 10*6/uL Normal 3.60-5.00 [facility] Comment on above: Performed By: #### P T #### [address] WBC (Bld) [#/Vol] 8.6 10*3/uL Normal 3.8-11.6 [facility] Comment on above: Performed By: #### P T #### [address] Comprehensive Metabolic Pane edinson 07-20-2023 Albumin [Mass/Vol] 4.2 g/dL Normal 3.5-5.7 [facility] Comment on above: Performed By: #### P T #### [address] Albumin/Globulin [Mass ratio] 1.5 {ratio} Normal [facility] Comment on above: Performed By: #### P T #### [address] ALP [Catalytic activity/Vol] 52 U/L Normal 34-104 [facility] Comment on above: Performed By: #### P T #### [address] ALT [Catalytic activity/Vol] 14 U/L Normal 7-52 [facility] Comment on above: Performed By: #### P T #### [facility] [address] [place] [address] Anion gap [Moles/Vol] 7.6 mmol/L Normal 6.0-15.0 [facility] Comment on above: Performed By: #### P T #### [facility] [address] [place] [address] AST [Catalytic activity/Vol] 14 U/L Normal 13-39 [facility] Comment on above: Performed By: #### P T #### [address] Bilirubin [Mass/Vol] 0.4 mg/dL Normal 0.3-1.0 [facility] Comment on above: Performed By: #### P T #### [address] Calcium [Mass/Vol] 8.7 mg/dL Normal 8.6-10.3 [facility] Comment on above: Performed By: #### P T #### [address] Chloride [Moles/Vol] 106 mmol/L Normal 98-107 [facility] Comment on above: Performed By: #### P T #### [address] CO2 [Moles/Vol] 27.6 mmol/L Normal 21.0-31.0 [facility] Comment on above: Performed By: #### P T #### [address] Creatinine [Mass/Vol] 0.61 mg/dL Normal 0.60-1.20 [facility] Comment on above: Performed By: #### P T #### [address] Creatinine Clr Calc Pharmacy 114.06 [facility] Comment on above: Result Comment: PERF ORMED BY: [place] [address] PATHOLOGIST LIFT DRIVER SAL VELASQUEZ M.D. Performed By: #### P T #### [address] GFR/1.73 sq M.predicted MDRD (S/P/Bld) [Vol rate/Area] mL/min/{1.73_m2} [facility] Comment on above: Performed By: #### P T #### [address] Globulin (S) [Mass/Vol] 2.8 g/dL Normal [facility] Comment on above: Performed By: #### P T #### [address] Glucose [Mass/Vol] 95 mg/dL Normal 70-100 [facility] Comment on above: Result Comment: [place] Glucose Reference Range is dependent on time and content of last meal. Glucose of more than 200 mg/dL in a nonstressed, ambulatory subject supports the diagnosis of Diabetes Mellitus. ADA recommended reference range Performed By: #### P T #### [address] Potassium [Moles/Vol] 4.2 mmol/L Normal 3.5-5.1 [facility] Comment on above: Performed By: #### P T #### [facility] [address] [place] [address] [facility] Protein [Mass/Vol] 7.0 g/dL Normal 6.4-8.9 [facility] Comment on above: Performed By: #### P T #### [facility] [address] Sodium [Moles/Vol] 137 mmol/L Normal 136-145 [facility] Comment on above: Performed By: #### P T #### [facility] [address] [place] [address] Urea nitrogen [Mass/Vol] 11 mg/dL Normal 7-25 [facility] Comment on above: Performed By: #### P T #### [facility] [address] [place] [address] [place] Dipstick and Microscopicon 0 10-29-2022 Appearance (U) Clear Normal Clear [facility] Comment on above: Order Comment: Name Collection Type:: Clean-Voided Midstream Performed By: #### P T #### [place] [address] [place] Bacteria,Urine None Seen Normal None Seen [facility] Comment on above: Order Comment: Name Collection Type:: Clean-Voided Midstream Performed By: #### P T #### [place] [address] [place] Bilirubin,Urine Negative Normal Negative [facility] Comment on above: Order Comment: Name Collection Type:: Clean-Voided Midstream Performed By: #### P T #### [facility] [address] [place], [place] [id number] [place] Color (U) Red Critically abnormal Yellow [facility] Comment on above: Order Comment: Name Collection Type:: Clean-Voided Midstream Performed By: #### P T #### [facility] [address] [place], [place] [id number] [place] Glucose Ql (U) Normal Normal Normal [facility] Comment on above: Order Comment: Name Collection Type:: Clean-Voided Midstream Performed By: #### P T #### [address] [place] [address] [place] Hyaline Casts,Urine 0-8 Normal 0-8 [facility] Comment on above: Order Comment: Name Collection Type:: Clean-Voided Midstream Performed By: #### P T #### [place] [id number] [facility] Ketones Ql (U) Negative Normal Negative [facility] Comment on above: Order Comment: Name Collection Type:: Clean-Voided Midstream Performed By: #### P T #### [address] Leukocyte esterase Test strip Ql (U) 1+ High Negative [facility] Comment on above: Order Comment: Name Collection Type:: Clean-Voided Midstream Performed By: #### P T #### [place] [address] [place] Nitrite,Urine Negative Normal Negative [facility] Comment on above: Order Comment: Name Collection Type:: Clean-Voided Midstream Performed By: #### P T #### [place] [address] [place] Occult Blood,Urine 3+ High Negative [facility] Comment on above: Order Comment: Name Collection Type:: Clean-Voided Midstream Performed By: #### P T #### [address] pH (U) 6.0 [pH] Normal 5.0-9.0 [facility] Comment on above: Order Comment: Name Collection Type:: Clean-Voided Midstream Performed By: #### P T #### [place] [id number] [place] Protein (U) [Mass/Vol] 30 mg/dL High Negative [facility] Comment on above: Order Comment: Name Collection Type:: Clean-Voided Midstream Performed By: #### P T #### [place] [address] [place] RBC,Urine Innumerable High 0-4 [facility] Comment on above: Order Comment: Name Collection Type:: Clean-Voided Midstream Performed By: #### P T #### [address] Specificy [place],Urine 1.007 Normal 1.001-1.030 [facility] Comment on above: Order Comment: Name Collection Type:: Clean-Voided Midstream Performed By: #### P T #### [address] Squamous Epithelial Cell,Urine None Seen Normal 0-2 [facility] Comment on above: Order Comment: Name Collection Type:: Clean-Voided Midstream Performed By: #### P T #### [address] Urobilinogen,Urine Normal Normal Normal [facility] Comment on above: Order Comment: Name Collection Type:: Clean-Voided Midstream Performed By: #### P T #### [address] WBC LM.HPF (Urine sed) [#/Area] 0 /[HPF] Normal 0-4 [facility] Comment on above: Order Comment: Name Collection Type:: Clean-Voided Midstream Performed By: #### P T #### [address] HCG,Urineon 10-29-2022 Beta HCG ( test) Ql (U) Negative Normal [facility] Comment on above: Order Comment: Name Collection Type:: Clean-Voided Midstream Result Comment: PERF ORMED BY: [place] [address] PATHOLOGIST LIFT DRIVER SAL VELASQUEZ M.D. Performed By: #### P T #### [address] Prothrombin Time INRon 10-29 INR Coag (PPP) [Relative time] 0.9 {INR} Normal [facility] Comment on above: Result Comment: INR Therapeutic Range A) Pre- and Peroperative OAT started two weeks before surgery. NOT HIP SURGERY: 1.5 - 2.5 HIP SURGERY: 2 - 3 B) Primary and secondary prevention of venous THROMBOSIS: 2 - 3 C) Active venous thrombosis, pulmonary embolism and prevention of recurrent venous thrombosis: 2 - 3 D) Prevention of arterial thromboembolism including patients with mechanical heart valves: 3 - 4.5 PERFORMED BY: [place] [address] PATHOLOGIST LIFT DRIVER SAL VELASQUEZ M.D. Performed By: #### P T #### [facility] [address] [place] [address] PT Coag (PPP) [Time] 10.6 s Normal 9.0-12.9 [facility] Comment on above: Performed By: #### P T #### [address] US transvaginalon 10-29-2022 US transvaginal [facility] [place] [address] [place] [address] Ultrasound Report Signed Patient: Shameka Cortez MR#: [id number] : 1975 Acct:[id number] Age/Sex: 47 / F ADM Date: 10/29/22 Loc: ER Room: Type: [facility] ER Attending Dr: Ordering Provider: JANES Feliz Date of Service: 10/29/22 US/US pelvic complete: heavy vag bleeding not ([id number]) US/US transvaginal: VAG BLEEDING Copies to: JANES Feliz COMPLETE PELVIC ULTRASOUND (transabdominal and transvaginal) CLINICAL DATA: Prolonged menstrual bleeding with large clots. COMPARISON: None Real-time ultrasound evaluation the pelvis was performed utilizing both a transabdominal and transvaginal approach. TRANSABDOMINAL: Estimated uterine size is approximately 9.8 x 4.5 x 5.3 cm. The endometrial lining does not appear to be grossly thickened. Both ovaries are visualized and the left appears to contain a cyst. No free fluid is seen. Cursory evaluation of the kidneys reveals no hydronephrosis or perinephric fluid. TRANSVAGINAL: Transvaginal scans were performed to better evaluate the uterus and adnexa. By this approach, there is a hypoechoic nodular area within the myometrium posteriorly on the left measuring 16 mm in size. This may be a fibroid. There are nabothian cysts. The endometrial lining is estimated at 11 mm. Both ovaries are again seen. The right measures 3.4 x 2.7 x 3.5 cm. The left ovary measures 6.0 x 1.9 x 2.1 cm. There is a partially exophytic cyst at the left ovary which measures almost 3 cm in size. Segmentation of bilateral duplex and color Doppler ovarian blood flow. No free fluid is visualized. US/US pelvic complete IMPRESSION: SUSPECTED UTERINE FIBROID. NEARLY 3 CM LEFT OVARIAN CYST. Impression dictated by: Deborah Gonzalez M.D.10/29/2022 12:43 PM Dictation Location: [place] [address] Tech: Bridgette Barnettjohn Transcribed By: KATHARINA 10/29/22 1243 Dictated By: Deborah Gonzalez MD 10/29/22 1236 Signed By: 10/29/[address] [facility] Office Visit (Cardiology)on 10-06-2022 Follow-up visit Diagnoses/Problems Assessed Non-ST elevation myocardial infarction (NSTEMI) in recovery phase (410.71) (I21.4) CAD (coronary artery disease) (414.00) (I25.10) ASHD (arteriosclerotic heart disease) (414.00) (I25.10) History of W[place] (myocardial infarction) (412) (I25.2) S/P right coronary artery (RCA) stent placement (V45.82) (Z95.5) Overweight with body mass index (BMI) of 29 to 29.9 in adult (278.02,V85.25) (E66.3,Z68.29) Former smoker (V15.82) (Z87.891) stop September 27 2022 Orders ASHD (arteriosclerotic heart disease), CAD (coronary artery disease), S/P right coronary artery (RCA) stent placement Cardiac Rehab Referral Evaluation and Treatment Evaluate AND Treat Status: Hold For - Scheduling,Retrospectiv e Authorization Requested for: 06Oct2022 Agreement : I agree to have my patient participate in the phase III outpatient cardiac rehabilitation program after completion of the phase II program. Consent : I consent to have my patient participate in the cardiac rehabilitation program. I will continue regular medical care of my patient throughout his/her participation in the program. Individualized Treatment Plan and Exercise Prescription : Defer the patients ITP and exercise prescription to be developed by the staff for your review and approval I authorize the Cardiac Rehabilitation Department to : Current lab values are helpful in order to assess the lipid status and individualize diet therapy. A venous blood sample will be drawn and lipids analyzed at the laboratory I authorize the Cardiac Rehabilitation Department to : Schedule a symptom limited graded exercise test with 12 lead ECG prior to starting cardiac rehabilitation and at discharge, if needed. CAD (coronary artery disease), Non-ST elevation myocardial infarction (NSTEMI) in recovery phase NEAL-WITHOUT REFLEX TO JOSIANE; Status:Active - Retrospective Authorization; Requested for:06Oct2022; Factor V Leiden; Status:Active - Retrospective Authorization; Requested for:06Oct2022; Lupus Anticoagulant, With Interpretation; Status:Active - Retrospective Authorization; Requested for:06Oct2022; Overweight with body mass index (BMI) of 29 to 29.9 in adult Healthy Weight Tips; Status:Complete - Retrospective Authorization; Done: 06Oct2022 Some eating tips that can help you lose weight.; Status:Complete - Retrospective Authorization; Done: 06Oct2022 SocHx: Former smoker Tobacco Use Screening; Status:Complete; Done: 06Oct2022 Patient Instructions Please bring all medicines, vitamins, and herbal supplements with you when you come to the office. Prescriptions will not be filled unless you are compliant with your follow up appointments or have a follow up appointment scheduled as per instruction of your physician. Refills should be requested at the time of your visit. Follow up in 6 months Cardiac Rehab Chief Complaint SHAMEKA CORTEZ is being [facility] for [facility] 09[facility]29 NSTEMI. 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 She presented originally to outside facility with syncope and elevated troponins. She feels well, she has mild orthostasis this is likely secondary to her lisinopril. She quit tobacco altogether she is mildly overweight (gained 8 pounds after quitting tobacco), denies angina or recurrent syncope or hospitalizations or nitrate usage Recommendations: Continue with current guideline directed medical therapies and DAPT and high-dose statin. If she has persistent dizziness and orthostasis she can discontinue her lisinopril, proceed with cardiac rehab, follow-up again in 6 months and counseling on continued abstention from smoking x3 minutes Surgical History Problems History of Cardiac catheterization with stent placement History of section Denied: History of Complete colonoscopy History of Epidural steroid injection History of Laparoscopy History of Laparotomy History of Tonsillectomy Current Meds Medication NameInstruction Aspirin EC Low Dose 81 MG Oral Tablet Delayed ReleaseTAKE 1 TABLET DAILY DIRECTED. Atorvastatin Calcium 80 MG Oral TabletTAKE 1 TABLET AT BEDTIME. Brilinta 90 MG Oral TabletTAKE 1 TABLET TWICE DAILY. Lisinopril 2.5 MG Oral TabletTAKE 1 TABLET DAILY. Metoprolol Tartrate 25 MG Oral TabletTAKE 1 TABLET TWICE DAILY. Nitroglycerin 0.4 MG Sublingual Tablet SublingualPLACE 1 TABLET UNDER THE TONGUE EVERY 5 MINUTES FOR UP TO 3 DOSES NEEDED FOR CHEST PAIN.CALL 911 IF PAIN PERSISTS. Allergies Medication ciprofloxacin Adverse Reaction; Recorded By: Jade Chase; 10/06/2022 2:31:11 PM Demerol TABS Recorded By: Kristen Reich; 10/05/2022 4:18:52 PM Penicillins Recorded By: Kristen Reich; 10/05/2022 4:18:52 PM Social History Problems Caffeine use (V49.89) (Z78.9) coffee 3-4 daily Former smoker (V15.82) (Z87.891) stop J (more content not included)... Normal [facility]Box Tobacco Screening.on 023 Adult depression screening assessment No [facility] [employer] [facility] [employer] y 250 DO Work Phone: Fall risk assessment a) No falls within the last year [facility] y 250 DO Work Phone: Tobacco use status CPHS b) No [facility] y 250 DO Work Phone: Basic Metabolic Panelon 09-11 Anion gap [Moles/Vol] 10.2 mmol/L Normal 6.0-15.0 [facility] Comment on above: Performed By: #### P TT #### [facility] [address] Calcium [Mass/Vol] 7.9 mg/dL Low 8.6-10.3 [facility] Comment on above: Performed By: #### P TT #### [facility] [address] Chloride [Moles/Vol] 109 mmol/L High 98-107 [facility] Comment on above: Performed By: #### P TT #### [facility] [address] CO2 [Moles/Vol] 22.9 mmol/L Normal 21.0-31.0 [facility] Comment on above: Performed By: #### P TT #### [address] Creatinine [Mass/Vol] 0.55 mg/dL Low 0.60-1.20 [facility] Comment on above: Performed By: #### P TT #### [place] [address] [place] Creatinine Clr Calc Pharmacy 129.23 [facility] Comment on above: Result Comment: PERF ORMED BY: [place] [address] PATHOLOGIST LIFT DRIVER SAL VELASQUEZ M.D. Performed By: #### P TT #### [place] [address] [place] GFR/1.73 sq M.predicted MDRD (S/P/Bld) [Vol rate/Area] mL/min/{1.73_m2} [facility] Comment on above: Performed By: #### P TT #### [address] Glucose [Mass/Vol] 97 mg/dL Normal 70-100 [facility] Comment on above: Result Comment: [place] Glucose Reference Range is dependent on time and content of last meal. Glucose of more than 200 mg/dL in a nonstressed, ambulatory subject supports the diagnosis of Diabetes Mellitus. ADA recommended reference range Performed By: #### P TT #### [place] [address] [place] Potassium [Moles/Vol] 4.1 mmol/L Normal 3.5-5.1 [facility] Comment on above: Performed By: #### P TT #### [facility] [address] Sodium [Moles/Vol] 138 mmol/L Normal 136-145 [facility] Comment on above: Performed By: #### P TT #### [facility] [address] Urea nitrogen [Mass/Vol] 9 mg/dL Normal 7-25 [facility] Comment on above: Performed By: #### P TT #### [facility] [address] ECG 12 lead ECGon 09-29-2022 ECG 12 lead ECG [facility] [place] [address] [place] [address] Electrocardiograph Report Signed Patient: Shameka Langley MR#: [id number] 588 : 1975 Acct:[id number] Age/Sex: 46 / F ADM Date: 09/27/22 Loc: Room: [address] [place] [address] Type: DIS IN Attending Dr: Preston Nair MD Ordering Provider: Davin Blair DO Date of Service: 09/29/22 ECG/ECG 12 lead ECG: Post Angioplasty Procedure in AM Copies to: Test Reason : Blood Pressure : / mmHG Vent. Rate : 074 BPM Atrial Rate : 074 BPM P-R Int : 122 ms QRS Dur : 092 ms QT Int : 414 ms P-R-T Axes : 032 053 018 degrees QTc Int : 459 ms Normal sinus rhythm subtle nonspecific ST abnormalities inferior When compared with ECG of 28-SEP-2022 07:12, No significant change was found Confirmed by JACOB MEDEL DO ([id number]) on 09/29/2022 6:16:12 PM Referred By: Electronically Signed By:JACOB MEDEL DO Transcribed By: MUS Signed By Jacob Medel DO 09/29 1816 Normal [facility] Troponin I High Sensitivityo n 09-29-2022 Troponin I High Sensitivity 3220.1 pg/mL Off scale high 0.0-15.0 [facility] Comment on above: Result Comment: Crit ical Result : Called to and read back by: STEVEN DEL A ROSA at: 09/29/2022 06:22:59 by:GASTON PERFORMED BY: [place] [address] PATHOLOGIST LIFT DRIVER SAL VELASQUEZ M.D. Performed By: #### H S TROP #### [address] Basic Metabolic Panelon 09-10 Anion gap [Moles/Vol] 7.6 mmol/L Normal 6.0-15.0 [facility] Comment on above: Order Comment: 539 draw Performed By: #### P TT #### [address] Calcium [Mass/Vol] 8.0 mg/dL Low 8.6-10.3 [facility] Comment on above: Order Comment: 539 draw Performed By: #### P TT #### [address] Chloride [Moles/Vol] 110 mmol/L High 98-107 [facility] Comment on above: Order Comment: 539 draw Performed By: #### P TT #### [address] CO2 [Moles/Vol] 24.6 mmol/L Normal 21.0-31.0 [facility] Comment on above: Order Comment: 539 draw Performed By: #### P TT #### [place] [address] [place] Creatinine [Mass/Vol] 0.55 mg/dL Low 0.60-1.20 [facility] Comment on above: Order Comment: 539 draw Performed By: #### P TT #### [place] [address] [place] Creatinine Clr Calc Pharmacy 129.55 Normal [facility] Comment on above: Order Comment: 539 draw Performed By: #### P TT #### [facility] [address] [place] [address] [place] GFR/1.73 sq M.predicted MDRD (S/P/Bld) [Vol rate/Area] mL/min/{1.73_m2} Normal [facility] Comment on above: Order Comment: 539 draw Performed By: #### P TT #### [address] Glucose [Mass/Vol] 96 mg/dL Normal 70-100 [facility] Comment on above: Order Comment: 539 draw Result Comment: [place] Glucose Reference Range is dependent on time and content of last meal. Glucose of more than 200 mg/dL in a nonstressed, ambulatory subject supports the diagnosis of Diabetes Mellitus. ADA recommended reference range Performed By: #### P TT #### [address] Potassium [Moles/Vol] 4.2 mmol/L Normal 3.5-5.1 [facility] Comment on above: Order Comment: 539 draw Performed By: #### P TT #### [place] [address] [place] Sodium [Moles/Vol] 138 mmol/L Normal 136-145 [facility] Comment on above: Order Comment: 539 draw Performed By: #### P TT #### [place] [address] [place] Urea nitrogen [Mass/Vol] 8 mg/dL Normal 7-25 [facility] Comment on above: Order Comment: 539 draw Performed By: #### P TT #### [address] Complete Blood Count Auto Di ffon 09-28-2022 Basophils (Bld) [#/Vol] 0.0 10*3/uL Normal 0.0-0.2 [facility] Comment on above: Order Comment: 539 draw Result Comment: PERF ORMED BY: [address] [place] [address] PATHOLOGIST LIFT DRIVER SAL VELASQUEZ M.D. Performed By: #### P T, CBC #### [address] Basophils/100 WBC (Bld) 0.6 % Normal . [facility] Comment on above: Order Comment: 0540 draw Performed By: #### P T, CBC #### [address] Eosinophils (Bld) [#/Vol] 0.3 10*3/uL Normal 0.0-0.45 [facility] Comment on above: Order Comment: 0540 draw Performed By: #### P T, CBC #### [address] Eosinophils/100 WBC (Bld) 4.0 % Normal . [facility] Comment on above: Order Comment: 0540 draw Performed By: #### P T, CBC #### [address] Erythrocyte distribution width (RBC) [Ratio] 13.8 % Normal 11.9-15.3 [facility] Comment on above: Order Comment: 0540 draw Performed By: #### P T, CBC #### [address] Hematocrit (Bld) [Volume fraction] 36.7 % Normal 34.0-46.4 [facility] Comment on above: Order Comment: 0540 draw Performed By: #### P T, CBC #### [address] Hemoglobin (Bld) [Mass/Vol] 12.5 g/dL Normal 11.8-15.4 [facility] Comment on above: Order Comment: 0540 draw Performed By: #### P T, CBC #### [address] Lymphocytes (Bld) [#/Vol] 1.9 10*3/uL Normal 1.00-4.8 [facility] Comment on above: Order Comment: 0540 draw Performed By: #### P T, CBC #### [place] [id number] [place] Lymphocytes/100 WBC (Bld) 22.5 % Normal . [facility] Comment on above: Order Comment: 40 draw Performed By: #### P T, CBC #### [address] MCH (RBC) [Entitic mass] 29.2 pg Normal 24.7-34.3 [facility] Comment on above: Order Comment: 40 draw Performed By: #### P T, CBC #### [address] MCV (RBC) [Entitic vol] 85.4 fL Normal 80-100 [facility] Comment on above: Order Comment: 40 draw Performed By: #### P T, CBC #### [address] Mean Corpuscular HGB Conc 34.2 g/dL Normal 32.0-35.0 [facility] Comment on above: Order Comment: 40 draw Performed By: #### P T, CBC #### [address] Monocytes (Bld) [#/Vol] 0.6 10*3/uL Normal 0.0-0.8 [facility] Comment on above: Order Comment: 40 draw Performed By: #### P T, CBC #### [address] Monocytes/100 WBC (Bld) 6.8 % Normal . [facility] Comment on above: Order Comment: 40 draw Performed By: #### P T, CBC #### [place] [address] [place] Neutrophils (Bld) [#/Vol] 5.6 10*3/uL Normal 1.8-7.7 [facility] Comment on above: Order Comment: 0540 draw Performed By: #### P T, CBC #### [address] Neutrophils/100 WBC (Bld) 66.1 % Normal . [facility] Comment on above: Order Comment: 0540 draw Performed By: #### P T, CBC #### [facility] [address] NRBC% 0.1 /100{WBC} Normal 0-0.5 [facility] Comment on above: Order Comment: 0540 draw Performed By: #### P T, CBC #### [facility] [address] Platelet mean volume (Bld) [Entitic vol] 7.9 fL Normal 6.3-10.7 [facility] Comment on above: Order Comment: 0540 draw Performed By: #### P T, CBC #### [facility] [address] Platelets (Bld) [#/Vol] 253 10*3/uL Normal 150-450 [facility] Comment on above: Order Comment: 0540 draw Performed By: #### P T, CBC #### [address] RBC (Bld) [#/Vol] 4.29 10*6/uL Normal 3.60-5.00 [facility] Comment on above: Order Comment: 0540 draw Performed By: #### P T, CBC #### [address] WBC (Bld) [#/Vol] 8.4 10*3/uL Normal 3.8-11.6 [facility] Comment on above: Order Comment: 0540 draw Performed By: #### P T, CBC #### [address] ECG 12 lead ECGon 09-28-2022 ECG 12 lead ECG [facility] [place] [address] [place] [address] Electrocardiograph Report Signed Patient: Shameka Langley MR#: [id number] 588 : 1975 Acct:[id number] Age/Sex: 46 / F ADM Date: 09/27/22 Loc: Room: [address] [place] [address] Type: DIS IN Attending Dr: Preston Nair MD Ordering Provider: Davin Blair DO Date of Service: 09/28/22 ECG/ECG 12 lead ECG: Post Angioplasty Procedure Copies to: Test Reason : Blood Pressure : / mmHG Vent. Rate : 067 BPM Atrial Rate : 067 BPM P-R Int : 152 ms QRS Dur : 090 ms QT Int : 408 ms P-R-T Axes : 057 036 002 degrees QTc Int : 431 ms Normal sinus rhythm Normal ECG No previous ECGs available Confirmed by JACOB MEDEL DO ([id number]) on 09/29/2022 6:29:42 PM Referred By: Electronically Signed By:JACOB MEDEL DO Transcribed By: MUS Signed By Jacob Medel DO 09/[address] [facility] ECG 12 lead ECG [address] [address] Electrocardiograph Report Signed Patient: Shameka Langley MR#: [id number] 588 : 1975 Acct:[id number] Age/Sex: 46 / F ADM Date: 09/27/22 Loc: Room: [address] [place] [address] Type: ADM IN Attending Dr: Preston Nair MD Ordering Provider: Ariadna Orozco MD Date of Service: 09/28/22 ECG/ECG 12 lead ECG: cp Copies to: Test Reason : Blood Pressure : / mmHG Vent. Rate : 069 BPM Atrial Rate : 069 BPM P-R Int : 134 ms QRS Dur : 096 ms QT Int : 424 ms P-R-T Axes : 058 042 022 degrees QTc Int : 454 ms Normal sinus rhythm Normal ECG When compared with ECG of 27-SEP-2022 15:13, No significant change was found Confirmed by JACOB MEDEL DO ([id number]) on 09/29/2022 1:21:19 AM Referred By: Electronically Signed By:JACOB MEDEL DO Transcribed By: MUS Signed By Jacob Medel DO 09/[address] [facility] ECH echo transthoracicon ECH echo transthoracic [place] [address] Echocardiogram Signed Patient: Shameka Langley MR#: [id number] 588 : 1975 Acct:[id number] Age/Sex: 46 / F ADM Date: 09/27/22 Loc: 4 Room: 3C1269-9 Type: ADM IN Attending Dr: Preston Nair MD Ordering Provider: Ariadna Orozco MD Date of Service: 09/27/22 ECH/ECH echo transthoracic: mi Copies to: MD Ariadna Oquendo MD Weight: 176 lb Performed By: KEIKO Cruz BSA: 1.9 m2 BP: 136/79 mmHg HR: 73 Reason For Study: mi History: HTN, Smoker Interpretation Summary The left ventricular wall motion is normal. Mild concentric left ventricular hypertrophy. Ejection Fraction = 60-65%. A variety of Doppler measurements indicate impaired left ventricular relaxation, which is associated with grade I/IV or mild diastolic dysfunction. There is no comparison study available. Procedure/Quality: A two-dimensional transthoracic echocardiogram with color flow and Doppler was performed. The study was technically good in quality. Left Ventricle: The left ventricular size is normal. Mild concentric left ventricular hypertrophy. Ejection Fraction = 60-65%. A variety of Doppler measurements indicate impaired left ventricular relaxation, which is associated with grade I/IV or mild diastolic dysfunction. The left ventricular wall motion is normal. Left Atrium: The left atrium appears normal in size. Right Atrium: The right atrium appears normal in size. Right Ventricle: The right ventricular size, thickness and function are normal. Aortic Valve: The aortic valve is normal in structure and function. No aortic regurgitation is present. Mitral Valve: The mitral valve is normal in structure and function. There is no mitral regurgitation noted. Tricuspid Valve: The tricuspid valve is normal in structure and function. No tricuspid regurgitation. Pulmonic Valve: The pulmonic valve is normal in structure and function. Arteries: The aortic root is normal size. Pericardium/Pleura: No pericardial effusion seen. There is no pleural effusion. IVC/Hepatic Viens: The inferior vena cava is normal in size, with a normal collapsibility index. Measurements with Normals IVSd: 1.1 cm (0.7-1.1 cm)LVIDd: 4.9 cm (3.7-5.4 cm) LVPWd: 1.2 cm (0.7-1.1 cm)LVIDs: 3.4 cm (2.3-3.6 cm) LA dimension: 4.0 cm (2.3-4.0 cm)Ao root diam: 3.0 cm(2.0-3.6 cm) asc Aorta Diam: 3.2 cm(2.1-3.4cm) Doppler with Normals MMode/2D Measurements Calculations RVDd: 3.0 cm FS: 30.7 % Ao root area: 7.2 cm2 LVLd ap4: 7.3 cm TAPSE: 2.6 cm EDV(Teich): EDV(MOD-sp4): RV S Sen: 114.1 ml 93.2 ml 16.6 cm/sec ESV(Teich): LVLs ap4: 6.4 cm 47.8 ml ESV(MOD-sp4): EF(Teich): 58.1 % 36.5 ml EF(MOD-sp4): 60.8 % __ SV(MOD-sp4): LAV(MOD-sp4): LA A2 area: 12.9 cm2 56.7 ml 45.0 ml LAV(MOD-sp2): LA A4 area: 16.1 cm2 31.8 ml LA length (vol): 4.6 cm LA vol: 38.2 ml LA vol index: 20.6 ml/m2 Doppler Measurements Calculations RAP systole: 5.0 mmHg Transcribed By: SCV Performed At: 09/28/22 0958 Signed By: Brooks Farias MD 09/28/22 1056 Normal [facility] Lipid Panelon 09-28-2022 Cholesterol [Mass/Vol] 164 mg/dL Normal 140-200 [facility] Comment on above: Order Comment: 40 draw Result Comment: Chol less than 200 mg/dl low risk Chol 201-239 mg/dl borderline risk Chol 240 mg/dl and greater high risk Performed By: #### P T #### [facility] [address] Cholesterol in HDL [Mass/Vol] 52 mg/dL Normal 23-92 [facility] Comment on above: Order Comment: 40 draw Result Comment: HDL CHOL ATP-III CLASSIFICATION Cardiovascular Risk HDL > or equal to 60 mg/dL LOW HDL < 40 mg/dL HIGH Performed By: #### P T #### [facility] [address] Cholesterol.total/C holesterol in HDL [Mass ratio] 3.2 {ratio} Normal <5.0 [facility] Comment on above: Order Comment: 539 draw Result Comment: PERF ORMED BY: [place] [address] PATHOLOGIST LIFT DRIVER SAL VELASQUEZ M.D. Performed By: #### P T #### [address] LDL Cholesterol,Calcula nagi 95 mg/dL Normal 0-100 [facility] Comment on above: Order Comment: 539 draw Result Comment: LDL ATP III CLASSIFICATION LDL less than 100 mg/dL Optimal LDL 100-129 mg/dL Near or above optimal LDL 130-159 mg/dL Borderline high LDL 160-189 mg/dL High LDL greater than 189 mg/dL Very high Performed By: #### P T #### [place] [address] [place] Triglyceride w/Reflex 83 mg/dL Normal 0-149 [facility] Comment on above: Order Comment: 40 draw Result Comment: TRIG ATP III CLASSIFICATION TRIG less than 150 mg/dL Normal TRIG 150-199 mg/dL Borderline high TRIG 200-500 mg/dL High TRIG greater than 500 mg/dL Very high Standard traceable to the Center for Disease Conrtrol and Prevention (CDC) test method. Performed By: #### P T #### [place] [address] [place] VLDL CHOLESTEROL 16 mg/dL Normal [facility] Comment on above: Order Comment: 0540 draw Performed By: #### P T #### [facility] [address] Magnesiumon 09-28-2022 Magnesium [Mass/Vol] 2.0 mg/dL Normal 1.9-2.7 [facility] Comment on above: Order Comment: Comme nt add Result Comment: PERF ORMED BY: [place] [address] PATHOLOGIST LIFT DRIVER SAL VELASQUEZ M.D. Performed By: #### P T #### [facility] [address] [place] [address] Partial Thromboplastin Timeo n 09-28-2022 aPTT Coag (Bld) [Time] 48.6 s High 25.1-36.5 [facility] Comment on above: Result Comment: PERF ORMED BY: [place] [address] PATHOLOGIST LIFT DRIVER SAL VELASQUEZ M.D. Performed By: #### P TT #### [facility] [address] [place] [address] aPTT Coag (Bld) [Time] 71.1 s High 25.1-36.5 [facility] Comment on above: Order Comment: 0540 draw Result Comment: PERF ORMED BY: [place] [address] PATHOLOGIST LIFT DRIVER SAL VELASQUEZ M.D. Performed By: #### P TT #### [facility] [address] [place] [address] aPTT Coag (Bld) [Time] 36.1 s Normal 25.1-36.5 [facility] Comment on above: Order Comment: DRAW WITH TROP AT 2300 Result Comment: PERF ORMED BY: [place] [address] PATHOLOGIST LIFT DRIVER SAL VELASQUEZ M.D. Performed By: #### P TT #### [place] [address] [place] Prothrombin Time INRon 09-28 INR Coag (PPP) [Relative time] 1.0 {INR} Normal [facility] Comment on above: Order Comment: 0540 draw Result Comment: INR Therapeutic Range A) Pre- and Peroperative OAT started two weeks before surgery. NOT HIP SURGERY: 1.5 - 2.5 HIP SURGERY: 2 - 3 B) Primary and secondary prevention of venous THROMBOSIS: 2 - 3 C) Active venous thrombosis, pulmonary embolism and prevention of recurrent venous thrombosis: 2 - 3 D) Prevention of arterial thromboembolism including patients with mechanical heart valves: 3 - 4.5 PERFORMED BY: [place] [address] PATHOLOGIST LIFT DRIVER SAL VELASQUEZ M.D. Performed By: #### P T, CBC #### [address] PT Coag (PPP) [Time] 11.3 s Normal 9.0-12.9 [facility] Comment on above: Order Comment: 0540 draw Performed By: #### P T, CBC #### [place] [address] [place] Troponin I High Sensitivityo n 09-28-2022 Troponin I High Sensitivity 5583.2 pg/mL Off scale high 0.0-15.0 [facility] Comment on above: Order Comment: Comme nt add on to AM lab already drawn Result Comment: Crit ical Result : Called to and read back by: THANIA MA at: 09/28/2022 13:52:05 by:DC PERFORMED BY: [place] [address] PATHOLOGIST LIFT DRIVER SAL VELASQUEZ M.D. Performed By: #### H S TROP #### [address] Troponin I High Sensitivity 4769.0 pg/mL Off scale high 0.0-15.0 [facility] Comment on above: Result Comment: Crit ical Result : Called to and read back by: STEVEN DE LA ROSA at: 09/27/2022 23:59:45 by:JODIE PERFORMED BY: [place] [address] PATHOLOGIST LIFT DRIVER SAL VELASQUEZ M.D. Performed By: #### H S TROP #### [facility] [address] [place] [address] Basic Metabolic Panelon 09-10 Anion gap [Moles/Vol] 9.5 mmol/L Normal 6.0-15.0 [facility] Comment on above: Performed By: #### P TT #### [address] Calcium [Mass/Vol] 8.1 mg/dL Low 8.6-10.3 [facility] Comment on above: Performed By: #### P TT #### [facility] [address] [place] [address] Chloride [Moles/Vol] 109 mmol/L High 98-107 [facility] Comment on above: Performed By: #### P TT #### [address] CO2 [Moles/Vol] 25.3 mmol/L Normal 21.0-31.0 [facility] Comment on above: Performed By: #### P TT #### [facility] [address] [place] [address] Creatinine [Mass/Vol] 0.57 mg/dL Low 0.60-1.20 [facility] Comment on above: Performed By: #### P TT #### [facility] [address] [place] [address] [place] Creatinine Clr Calc Pharmacy 125.01 Normal [facility] Comment on above: Result Comment: PERF ORMED BY: [place] [address] PATHOLOGIST LIFT DRIVER SAL VELASQUEZ M.D. Performed By: #### P TT #### [facility] [address] [place] [address] [place] GFR/1.73 sq M.predicted MDRD (S/P/Bld) [Vol rate/Area] mL/min/{1.73_m2} Normal [facility] Comment on above: Performed By: #### P TT #### [address] Glucose [Mass/Vol] 82 mg/dL Normal 70-100 [facility] Comment on above: Result Comment: [place] Glucose Reference Range is dependent on time and content of last meal. Glucose of more than 200 mg/dL in a nonstressed, ambulatory subject supports the diagnosis of Diabetes Mellitus. ADA recommended reference range Performed By: #### P TT #### [address] Potassium [Moles/Vol] 3.8 mmol/L Normal 3.5-5.1 [facility] Comment on above: Performed By: #### P TT #### [address] Sodium [Moles/Vol] 140 mmol/L Normal 136-145 [facility] Comment on above: Performed By: #### P TT #### [place] [address] [place] Urea nitrogen [Mass/Vol] 7 mg/dL Normal 7-25 [facility] Comment on above: Performed By: #### P TT #### [address] Complete Blood Count Auto Di ffon 09-27-2022 Basophils (Bld) [#/Vol] 0.1 10*3/uL Normal 0.0-0.2 [facility] Comment on above: Result Comment: PERF ORMED BY: [place] [address] PATHOLOGIST LIFT DRIVER SAL VELASQUEZ M.D. Performed By: #### P TT #### [place] [address] [place] Basophils/100 WBC (Bld) 1.0 % Normal . [facility] Comment on above: Performed By: #### P TT #### [address] [address] [place] Eosinophils (Bld) [#/Vol] 0.1 10*3/uL Normal 0.0-0.45 [facility] Comment on above: Performed By: #### P TT #### [address] Eosinophils/100 WBC (Bld) 1.2 % Normal . [facility] Comment on above: Performed By: #### P TT #### [address] Erythrocyte distribution width (RBC) [Ratio] 13.8 % Normal 11.9-15.3 [facility] Comment on above: Performed By: #### P TT #### [address] Hematocrit (Bld) [Volume fraction] 38.6 % Normal 34.0-46.4 [facility] Comment on above: Performed By: #### P TT #### [address] Hemoglobin (Bld) [Mass/Vol] 13.3 g/dL Normal 11.8-15.4 [facility] Comment on above: Performed By: #### P TT #### [address] Lymphocytes (Bld) [#/Vol] 1.8 10*3/uL Normal 1.00-4.8 [facility] Comment on above: Performed By: #### P TT #### [address] Lymphocytes/100 WBC (Bld) 17.6 % Normal . [facility] Comment on above: Performed By: #### P TT #### [address] MCH (RBC) [Entitic mass] 29.5 pg Normal 24.7-34.3 [facility] Comment on above: Performed By: #### P TT #### [address] MCV (RBC) [Entitic vol] 85.4 fL Normal 80-100 [facility] Comment on above: Performed By: #### P TT #### [facility] [address] Mean Corpuscular HGB Conc 34.5 g/dL Normal 32.0-35.0 [facility] Comment on above: Performed By: #### P TT #### [facility] [address] [place] [address] [place] Monocytes (Bld) [#/Vol] 0.6 10*3/uL Normal 0.0-0.8 [facility] Comment on above: Performed By: #### P TT #### [facility] [address] Monocytes/100 WBC (Bld) 6.1 % Normal . [facility] Comment on above: Performed By: #### P TT #### [facility] [address] Neutrophils (Bld) [#/Vol] 7.5 10*3/uL Normal 1.8-7.7 [facility] Comment on above: Performed By: #### P TT #### [facility] [address] [place] [address] [place] Neutrophils/100 WBC (Bld) 74.1 % Normal . [facility] Comment on above: Performed By: #### P TT #### [facility] [address] NRBC% 0.0 /100{WBC} Normal 0-0.5 [facility] Comment on above: Performed By: #### P TT #### [facility] [address] Platelet mean volume (Bld) [Entitic vol] 7.7 fL Normal 6.3-10.7 [facility] Comment on above: Performed By: #### P TT #### [facility] [address] Platelets (Bld) [#/Vol] 293 10*3/uL Normal 150-450 [facility] Comment on above: Performed By: #### P TT #### [facility] [address] RBC (Bld) [#/Vol] 4.52 10*6/uL Normal 3.60-5.00 [facility] Comment on above: Performed By: #### P TT #### [facility] [address] WBC (Bld) [#/Vol] 10.2 10*3/uL Normal 3.8-11.6 [facility] Comment on above: Performed By: #### P TT #### [facility] [address] [place] [address] ECG 12 lead ECGon 09-27-2022 ECG 12 lead ECG [facility] [place] [address] [place] [address] Electrocardiograph Report Signed Patient: Shameka Langley MR#: [id number] : 1975 Acct:[id number] Age/Sex: 46 / F ADM Date: 09/27/22 Loc: Room: [address] [place] [address] Type: ADM IN Attending Dr: Ariadna Orozco MD Ordering Provider: Tanya Olivera APRN Date of Service: 09/27/22 ECG/ECG 12 lead ECG: synocope Copies to: Test Reason : Blood Pressure : / mmHG Vent. Rate : 065 BPM Atrial Rate : 065 BPM P-R Int : 140 ms QRS Dur : 088 ms QT Int : 434 ms P-R-T Axes : 065 056 048 degrees QTc Int : 451 ms Normal sinus rhythm Normal ECG No previous ECGs available Confirmed by MAGDY CAMACHO [id number] on 09/27/2022 7:27:24 PM Referred By: Electronically Signed By:SHAKEEL CURRAN MD [facility] Transcribed By: MUS Signed By Humberto Curran MD 09/27/221926 Normal [facility] Partial Thromboplastin Timeo n 09-27-2022 aPTT Coag (Bld) [Time] 27.4 s Normal 25.1-36.5 [facility] Comment on above: Result Comment: PERF ORMED BY: [place] [address] PATHOLOGIST LIFT DRIVER SAL VELASQUEZ M.D. Performed By: #### P T #### [place] [id number] [facility] Prothrombin Time INRon 09-27 INR Coag (PPP) [Relative time] 1.0 {INR} Normal [facility] Comment on above: Result Comment: INR Therapeutic Range A) Pre- and Peroperative OAT started two weeks before surgery. NOT HIP SURGERY: 1.5 - 2.5 HIP SURGERY: 2 - 3 B) Primary and secondary prevention of venous THROMBOSIS: 2 - 3 C) Active venous thrombosis, pulmonary embolism and prevention of recurrent venous thrombosis: 2 - 3 D) Prevention of arterial thromboembolism including patients with mechanical heart valves: 3 - 4.5 Performed By: #### P T #### [address] PT Coag (PPP) [Time] 11.7 s Normal 9.0-12.9 [facility] Comment on above: Performed By: #### P T #### [place] [address] [place] Troponin I High Sensitivityo n 09-27-2022 Troponin I High Sensitivity 4802.2 pg/mL Off scale high 0.0-15.0 [facility] Comment on above: Result Comment: Crit ical Result : Called to and read back by: MARK DE LA ROSA at: 09/27/2022 21:15:22 by:[id number] PERFORMED BY: [place] [address] PATHOLOGIST LIFT DRIVER SAL VELASQUEZ M.D. Performed By: #### P T #### [address] Troponin I High Sensitivity 2854.0 pg/mL Off scale high 0.0-15.0 [facility] Comment on above: Result Comment: Crit ical Result : Called to and read back by: NORI LEE at: 09/27/2022 16:25:05 by:[id number] PERFORMED BY: [place] [address] PATHOLOGIST LIFT DRIVER SAL VELASQUEZ M.D. Performed By: #### P TT #### [address] Coding Summary.on 04-04-2019 Coding Summary. 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 However, the narrative phrase printed from the coding software may appear abbreviated, or result in slightly different terminology. Coded By: Rosario Morales CphT Date Saved: 04/04/2019 01:48 pm Normal [facility] Gynecology Office/Clinic Not milka 03-31-2019 Gynecology Office/Clinic Note Chief Complaint Vulvar Biopsy Obstetric History History (0,0,0,2) # 1 Baby 1 Outcome Date: 1999 Outcome: Live Outcome or Result: Vaginal Gender: Female Gest Age: 28 weeks 5 days Wt: 1446 g Hospital: [facility] Labor: -- Child's Name: -- Baby's Father: -- # 2 Baby 1 Outcome Date: 06/12/2013 Outcome: Live Outcome or Result: Vaginal Gender: Female Gest Age: 27 weeks 5 days Wt: -- Hospital: -- [facility] Labor: -- Child's Name: -- Baby's Father: -- History of Present Illness Pt is here for vulva bx. She was possibly exposed to STD by cheating spouse. She has hx of lichen sclerosis and Hidreadenitis but never had biopsy before. Her vulvar itching has gotten unbearable. She has used clobetasol in the past, but does not have any more. She is currently on valtrex for vulvar lesions. Review of Systems PHQ Score Initial Depression Screen Score: 0 Constitutional: No fever, No chills, No sweats, No weakness. Respiratory: No shortness of breath, No cough. Cardiovascular: No chest pain, Noperipheral edema. Physical Exam Vitals & Measurements HR: 76(Peripheral) RR: 16 BP: 130/80 HT: 162 cm WT: 90.6 kg BMI: 34.52 General Exam: Constitutional: alert, no acute distress, well hydrated, well developed, well nourished. Skin: normal color, no rashes, no lesions, no unusual bruising. Head: atraumatic, normocephalic. Eyes: EOM intact, no nystagmus, no icterus. Ears: no external deformities, gross hearing intact. Mouth: normal dentition Respiratory: no respiratory distress. Abdomen: nondistended, nontender, no guarding, no masses. Spine: normal mobility, no deformities. Extremities: no deformities, no clubbing, no cyanosis, no edema. Neuro: normal, cranial nn II-XII grossly intact, sensation intact, motor intact, station & gait normal. Psych: oriented to all spheres, affect and mood appropriate, normal interaction, good eye contact. Pelvic Exam: Vulva: normal appearance, normal hair distribution, multiple lesions/scabs and sores Urethra: normal, no masses, non-tender, no discharge. Bladder: normal, non-tender, non-distended. Vagina: normal, rugated, physiologic discharge, no lesions, no masses, adequate pelvic support. Cervix: normal, midposition, no motion tenderness, no lesions. Uterus: smooth, mobile, non-tender, adequate support, anteverted. Adnexa: normal, no masses, mobile, nontender Procedure Vulva Biopsy: Area prepped w/betadyne Lidocaine w/epi injected 5mm punch used on L vulva Biopsy grasped w/pick and shovel man Biopsy excised w/small scissors Hemostasis obtained w/pressure, silver nitrate Assessment/Plan 1. Pt here for vulvar bx 2. Bx done 3. Blood work for STD testing ordered 4. f/u in 2 wks 1. Vulvar itching (L29.2: Pruritus vulvae) Ordered: BX vulva or perineum/1 lesion 72410 HCV Ab w/rfx to Verification Hepatitis B Surface Antigen HIV Screen 4th Generation wRfx HSV 1 and 2-Spec Ab, IgG w/Rfx RPR 2. Vulvar lesion (N90.89: Other specified noninflammatory disorders of vulva and perineum) Ordered: Body Mass Index (BMI) documented 3008F BX vulva or perineum/1 lesion 89282 HCV Ab w/rfx to Verification Hepatitis B Surface Antigen HIV Screen 4th Generation wRfx HSV 1 and 2-Spec Ab, IgG w/Rfx RPR 3. Hidradenitis suppurativa (L73.2: Hidradenitis suppurativa) Ordered: Abscess/simple/single/I & D 35314 Gynecological Culture HSV Cult & Typing NuSwab Vaginitis Plus (VG+) 4. Possible exposure to STD (Z20.2: Contact with and (suspected) exposure to infections with a predominantly sexual mode of transmission) Orders: valacyclovir, 1 gram = 1 tab(s), Oral, BID, # 20 tab(s), Refills(s) 0, Pharmacy: [facility]/pharmacy #[id number] [place] LabworkNotification Office Visit Level 3 New [address] Follow-up With When Contact Information Roslyn Persaud DO In 2 weeks [address] [place] [phone]- [phone] Additional Instructions: Problem List/Past Medical History Ongoing Advanced maternal age patient Smoker Historical HYPERTENSION Procedure/Surgical History cervical cerclage (02/21/2013), BACK INJECTIONS, Exploratory laparotomy, LAPROSCOPY, TONSILLECTOMY. Medications hydrochlorothiazide, 25 mg, Oral, Daily Valtrex 1 g Tab, 1 gram= 1 tab(s), Oral, BID Allergies Demerol HCl ciprofloxacin morphine penicillins Social History Alcohol - Denies Alcohol Use, 02/13/2013 Substance Abuse - Denies Substance Abuse, 02/13/2013 Tobacco - High Risk, 02/13/2015 10 or more cigarettes (1/2 pack or more)/day in last 30 days Tobacco Use:. Never Smokeless Tobacco Use:. Cigarettes, Yes, 03/31/2019 Family History Hypertension: Mother, Father and Sister. Primary malignant neoplasm of female breast: Grandparent. Immunizations Vaccine Date Status Comments influenza virus vaccine, live, trivalent - Not Given Patient Refuses Normal [facility] Comment on above: Result Comment: Elec tronically Signed By: Roslyn Persaud DO\.br\Date and Time Signed: 03/31/19 09:20 EST Gynecology Office/Clinic Not milka 03-30-2019 Gynecology Office/Clinic Note Chief Complaint Vaginal Odor, Irritation, Itching Obstetric History History (0,0,0,2) # 1 Baby 1 Outcome Date: 1999 Outcome: Live Outcome or Result: Vaginal Gender: Female Gest Age: 28 weeks 5 days Wt: 1446 g Hospital: [facility] Labor: -- Child's Name: -- Baby's Father: -- # 2 Baby 1 Outcome Date: 06/12/2013 Outcome: Live Outcome or Result: Vaginal Gender: Female Gest Age: 27 weeks 5 days Wt: -- Hospital: -- [facility] Labor: -- Child's Name: -- Baby's Father: -- History of Present Illness New pt here because she has bad odor and white d/c. She has caught her cheating on her and is worried about STD. She also states she was diagnosed with lichen but not with a biopsy. She also thinks she has a vaginal cyst. She is c/o overall irritation down there. Review of Systems PHQ Score Initial Depression Screen Score: 0 Constitutional: No fever, No chills, No sweats, No weakness. Respiratory: No shortness of breath, No cough. Cardiovascular: No chest pain, Noperipheral edema. Physical Exam Vitals & Measurements HR: 76(Peripheral) RR: 16 BP: 130/80 HT: 162 cm WT: 89.6 kg BMI: 34.14 General Exam: Constitutional: alert, no acute distress, well hydrated, well developed, well nourished. Skin: normal color, no rashes, no lesions, no unusual bruising. Head: atraumatic, normocephalic. Eyes: EOM intact, no nystagmus, no icterus. Ears: no external deformities, gross hearing intact. Mouth: normal dentition Respiratory: no respiratory distress. Abdomen: nondistended, nontender, no guarding, no masses. Spine: normal mobility, no deformities. Extremities: no deformities, no clubbing, no cyanosis, no edema. Neuro: normal, cranial nn II-XII grossly intact, sensation intact, motor intact, station & gait normal. Psych: oriented to all spheres, affect and mood appropriate, normal interaction, good eye contact. Pelvic Exam: Vulva: normal appearance, normal hair distribution, multiple lesions not tender to palpation. Urethra: normal, no masses, non-tender, no discharge. Bladder: normal, non-tender, non-distended. Vagina: normal, rugated, physiologic discharge, no lesions, +R labial cyst, adequate pelvic support. Cervix: normal, midposition, no motion tenderness, no lesions. Uterus: smooth, mobile, non-tender, adequate support, anteverted. Adnexa: normal, no masses, mobile, nontender Procedure I&D Cyst palpated Area prepped w/betadyne Incision made w/scalpel Purulent material drained Hemostasis obtained w/pressure, silver nitrate Assessment/Plan 1. Pt here for STD testing 2. HSV culture done 3. Valtrex rx given 4. Nu swab done 5. Recommend vulvar bx 6. and f/u for annual 1. Vaginitis (N76.0: Acute vaginitis) Ordered: Abscess/simple/single/I & D 17613 Office Visit Level 3 New [address] 2. Hidradenitis suppurativa (L73.2: Hidradenitis suppurativa) Ordered: Abscess/simple/single/I & D 46218 Orders: valacyclovir, 1 gram = 1 tab(s), Oral, BID, # 20 tab(s), Refills(s) 0, Pharmacy: [facility]/pharmacy #[id number] Follow-up With When Contact Information Roslyn Persaud DO In [address] [place] [phone] Additional Instructions: Problem List/Past Medical History Ongoing Advanced maternal age patient Smoker Historical HYPERTENSION Procedure/Surgical History cervical cerclage (02/21/2013), BACK INJECTIONS, Exploratory laparotomy, LAPROSCOPY, TONSILLECTOMY. Medications hydrochlorothiazide, 25 mg, Oral, Daily Valtrex 1 g Tab, 1 gram= 1 tab(s), Oral, BID Allergies Demerol HCl ciprofloxacin morphine penicillins Social History Alcohol - Denies Alcohol Use, 02/13/2013 Substance Abuse - Denies Substance Abuse, 02/13/2013 Tobacco - High Risk, 02/13/2015 10 or more cigarettes (1/2 pack or more)/day in last 30 days Tobacco Use:. Never Smokeless Tobacco Use:. Cigarettes, Yes, 03/30/2019 Family History Hypertension: Mother, Father and Sister. Primary malignant neoplasm of female breast: Grandparent. Immunizations Vaccine Date Status Comments influenza virus vaccine, live, trivalent - Not Given Patient Refuses Normal [facility] Comment on above: Result Comment: Elec tronically Signed By: Roslyn Persaud DO.br\Date and Time Signed: 03/30/19 14:48 EST Vital Signs Date Time Vital Sign Value Performing Clinician Faci lity 10-06-2022 14:32-0400 Body height 162.56 cm Griffin [employer] Work Phone: [facility] 250 DO Work Phone: 10-06-2022 14:32-0400 Body mass index (BMI) [Ratio] 29.87 kg/m2 Griffin [employer] Work Phone: [facility] 250 DO Work Phone: 10-06-2022 14:32-0400 Body surface area Derived from formula 1.84 m2 Griffin [employer] Work Phone: [facility] 250 DO Work Phone: 10-06-2022 14:32-0400 Body weight 78.93 kg Griffin [employer] Work Phone: [facility] 250 DO Work Phone: 10-06-2022 14:32-0400 Diastolic blood pressure 76 mm[Hg] Griffin [employer] Work Phone: [facility] 250 DO Work Phone: 10-06-2022 14:32-0400 Heart rate 66 /min [employer] Work Phone: [facility] 250 DO Work Phone: 10-06-2022 14:32-0400 Systolic blood pressure 110 mm[Hg] [employer] Work Phone: [facility] 250 DO Work Phone: 09-27-2022 00:00-0400 65 1 Griffin Paredes Work Phone: [facility] 250 DO Work Phone: Comment on above: [id number] Encounters Encounter Date Encounter Type Care Provider Facility Start: 11-30-2022 Telephone encounter Griffin Paredes Work Phone: [facility] 250 DO Work Phone: Start: 10-29-2022 End: 10-29-2022 Emergency department patient visit Griffin M Lena Facility:[facility] Start: 10-22-[address] Griffin Paredes Facility:[facility] Start: 10-21-2022 Rx Renewal Griffin Paredes Work Phone: [facility] 250 DO Work Phone: Start: 10-06-2022 Office outpatient vi sit 25 minutes Griffin Paredes Work Phone: [facility] 250 DO Work Phone: Start: 10-06-[address] Griffin Paredes Facility: Start: 09-29-[address] Hubmerto Canseco ility:[id number] Start: 09-28-2022 ambulatory Jed Hernandes cility:[id number] Start: 09-28-[address] Humberto Blair Facility:[id number] Start: 09-27-[address] Humberto Canseco ility:[id number] Start: 09-27-2022 End: 09-29-2022 Evaluation and management of inpatient Griffin Paredes Facility:[facility] Start: 02-18-2020 Patient encounter procedure REBECCA ABREU Facility:[facility] Procedures Date Procedure Procedure Detail Performing Clinician Cardiac catheterization Ashu Paredes Work Phone: section Griffin [employer] Work Phone: Epidural steroid injection Griffin Paredes Work Phone: History of placement of stent for coronary artery disease S/P right coronary artery (RCA) stent placement Griffin Paredes Work Phone: Laparoscopy Griffin Paredes Work Phone: Laparotomy Griffin Paredes Work Phone: Tonsillectomy Griffin Paredes Work Phone: NEGATED: Highlighted row has not occurred! Total colonoscopy Griffin Paredes Work Phone: Plan of Treatment Date Care Activity Detail Author Start: 04-15-2023 FUV, Provider: Humberto Blair, Status: Pen, Time: 9:30 AM FUV, Provider: Humberto Blair, Status: Pen, Time: 9:30 AM [facility] DO Work Phone: Payers Date Payer Category Payer Medicaid [id number] 2022 Self-pay 1975 Unknown [id number] 2.16.84 [id number] 1975 Unknown [id number] 2.16. [id number] 1975 Unknown [id number] 2.16. [id number] 1975 Unknown [id number] 2.16. [id number] 1975 Unknown [id number] 2.16. [id number] 1975 Unknown [id number] 2.16. [id number] 1975 Unknown [id number] 2.16. [id number] 1960 Self-pay [id number] Unknown Unknown [id number] 2.16.8 [id number] Unknown [id number] 2.16. [id number] Social History Date Type Detail Facility Occasional alcohol use Occasional alcohol use -[facility] DO Work Phone: Comment on above: once weekly; coffee 3-4 daily; stop September 27 2022; Summary Purpose Family History Unknown Family Member Name Dates Details Family history of hypertensi on: Mother(V17.49, Z82.49) Status:Active Family history of coronary a rtery disease: Father(V17.3, Z82.49) Status:Active Family history of cerebrovas cular accident (CVA): Brother(V17.1, Z82.3) Status:Active Family history of pulmonary embolism: Brother(V17.49, Z82.49) Status:Active Clotting disorder: Brother Status:Active Unknown Family Member Name Dates Details Family history of hypertensi on: Mother(V17.49, Z82.49) Status:Active Family history of coronary a rtery disease: Father(V17.3, Z82.49) Status:Active Family history of cerebrovas cular accident (CVA): Brother(V17.1, Z82.3) Status:Active Family history of pulmonary embolism: Brother(V17.49, Z82.49) Status:Active Clotting disorder: Brother Status:Active Unknown Family Member Name Dates Details Family history of hypertensi on: Mother(V17.49, Z82.49) Status:Active Family history of coronary a rtery disease: Father(V17.3, Z82.49) Status:Active Family history of cerebrovas cular accident (CVA): Brother(V17.1, Z82.3) Status:Active Family history of pulmonary embolism: Brother(V17.49, Z82.49) Status:Active Clotting disorder: Brother Status:Active Advance Directives No Advanced Directives Records FoundNo Advanced Directives Records FoundNo Advanced Directives Records FoundNo Advanced Directives Records FoundNo Advanced Directives Records Found Additional Source Comments INFORMATION SOURCE (unrecogn ized section and content) DATE CREATED AUTHOR 05/10/2019 [employer] [facility] DATE CREATED AUTHOR AUTHOR'S ORGANIZ ATION 02/17/2020 [facility] DATE CREATED AUTHOR AUTHOR'S ORGANIZ ATION 10/07/2022 [employer] DATE CREATED AUTHOR AUTHOR'S ORGANIZ ATION 2022 [facility] DATE CREATED AUTHOR AUTHOR'S ORGANIZ ATION 11/12/2022 [facility] FOR RECORDS PERTAINING TO PATIENTS WHO ARE OR HAVE BEEN ENROLLED IN A CHEMICAL DEPENDENCY/SUBSTANCEABUSE PROGRAM, SOME INFORMATION MAY BE OMITTED. This clinical summary was aggregated from multiple sources. Caution should be exercised in using it in the provision of clinical care. This summary normalizes information from multiple sources, and as a consequence, information in this document may materially change the coding, format and clinical context of patient data. In addition, data may be omitted in some cases. CLINICAL DECISIONS SHOULD BE BASED ON THE PRIMARY CLINICAL RECORDS. [employer] provides no warranty or guarantee of the accuracy or completeness of information in this document.
--- NOTE | 2023-04-14 11:40 | XR_ITS ---
The [address] [address] Patient Name: KATI CORTEZ MRN: [id number] date: 1975 Sex: F Assigned Patient Location: LAB Current Patient Location: LAB Accession/Order Number: [id number] Exam Date: 04/14/2023 11:35 Report Date: 04/14/2023 11:52 At the request of: KIMBERLEE RIVAS Procedure: XR wrist KING min 3V EXAMINATION: XR wrist KING min 3V HISTORY: bilateral wrist pain COMPARISON: No relevant comparison available. FINDINGS: RIGHT FINDINGS: BONES: No acute fracture or dislocation. Moderate degenerative changes most significant at the first carpometacarpal joint where there is joint space narrowing marginal osteophyte formation SOFT TISSUES: Negative. No visible soft tissue swelling. OTHER: Negative. LEFT FINDINGS: BONES: No acute fracture or dislocation. Moderate degenerative changes most significant at the first carpometacarpal joint where there is joint space narrowing marginal osteophyte formation SOFT TISSUES: Negative. No visible soft tissue swelling. OTHER: Negative. XR/XR wrist KING min 3V IMPRESSION: RIGHT CONCLUSION: Moderate first carpal metacarpal joint osteoarthritis LEFT CONCLUSION: Moderate first carpal metacarpal joint osteoarthritis Electronically authenticated by: LAYO JEAN Date: 04/14/2023 11:52
== END 2023-04-14 11:24 | disposition home or self-care (01) ==
LOC: LAB 11:24
PROVIDERS: PCP Family Medicine; Visit Provider Family Medicine
DX: I21.4 Non-ST elevation (NSTEMI) myocardial infarction (principal); R51.9 Headache, unspecified; R55 Syncope and collapse; R10.84 Generalized abdominal pain; M25.531 Pain in right wrist; M25.532 Pain in left wrist
CPT/HCPCS: 73110

== ENCOUNTER 2023-05-10 07:12 | Outpatient (RCR) | payer MEDICAID, SELFPAY | END 2023-09-23 07:18 | disposition home or self-care (01) | LOC: CR 07:12 | PROVIDERS: PCP Family Medicine; Visit Provider Internal Medicine Cardiovascular Disease | DX: Z95.5 Presence of coronary angioplasty implant and graft (principal); I25.2 Old myocardial infarction ==